=== PATIENT | male | born 1930 | race Caucasian/White ===

== ENCOUNTER 2016-08-13 12:37 | Emergency (ER) | payer OTHER ==
[~2016-08-13 12:37] MED LIST: ALPH-E400 IU PO; ATIVAN0.5 M1 PO; AUGMENTIN 500M500 MG PO; CALCIUM + D 6001 TAB PO; CALCIUM-MAGNES1 EAC3 PO; CHILDREN'S ASPI81 M1 PO; CIALIS5 M1 PO; COZAAR25 M1 PO; FINASTERIDE5 MG PO; FISH OIL 1,0001 EACH PO; GLYBURIDE2.5 M1 PO; GLYBURIDE2.5 MG PO; JANUVIA100 M1 PO; LISINOPRIL2.5 MG PO; LOPRESSOR 25MG25 MG PO; LOPRESSOR50 M1 PO; MASON NATURAL1200 MG PO; METFORMIN HCL500 MG PO; MULTIVITAMIN1 TAB PO; MYRBETRIQ25 M1 PO; OCUVITE1 TA1 PO; OMEPRAZOLE20 M2 PO; OMEPRAZOLE20 MG PO; RANEXA500 M1 PO; SERTRALINE HCL100 MG PO; SERTRALINE HYDR50 MG PO; SIMVASTATIN40 M1 PO; SIMVASTATIN40 MG PO; SLOW-MAG71.5 MG PO; TAMSULOSIN HYD0.4 MG PO; VITAMIN C500 M3 PO; VITAMIN D1000 UNIT PO
[2016-08-13 12:54] VITALS: BP 149/77
--- NOTE | 2016-08-13 13:38 | ED UPPER/LOWER EXTREMITY COMPL ---
History of Present Illness General Chief Complaint: Fall Stated Complaint: PT FELL 2DAYS AGO WIH SHOULDER PAIN Source: patient, family () Exam Limitations: no limitations Vital Signs & Intake/Output Vital Signs & Intake/Output Vital Signs Date Time Temp Pulse Resp B/P Pulse O2 O2 Flow FiO2 Ox Delivery Rate 08/13 1254 98.2 80 20 149/77 95 Allergies Coded Allergies: NO KNOWN ALLERGIES (01/19/16) Reconcile Medications Aspirin (Children's Aspirin) 81 MG TAB.CHEW 1 TAB PO DAILY HEART HEALTH ( Reported) Glyburide 2.5 MG TABLET 1 TAB PO AD DIABETES (Reported) Lorazepam (Ativan) 0.5 MG TABLET 1 TAB PO PRN ANXIETY (Reported) Losartan Potassium (Cozaar) 25 MG TABLET 1 TAB PO DAILY HEART/BP (Reported) Magnesium Chloride (Slow-Mag) 71.5 MG TABLET.DR 1 TAB PO DAILY SUPPLEMENT ( Reported) Meloxicam (Mobic) 15 MG TABLET 1 TAB PO DAILY PRN pain Metoprolol Tartrate (Lopressor) 50 MG TABLET 1 TAB PO BID HEART/BP (Reported) Mirabegron (Myrbetriq) 25 MG TAB.ER.24H 1 TAB PO DAILY BLADDER (Reported) Omeprazole 20 MG CAPSULE.DR 1 CAP PO AD GI (Reported) Ranolazine (Ranexa) 500 MG TAB.ER.12H 1 TAB PO BID HEART (Reported) Sertraline HCl 100 MG TABLET 1 TAB PO DAILY MENTAL HEALTH (Reported) Simvastatin (Simvastatin*) 40 MG TABLET 1 TAB PO QPM High lipid (Reported) Sitagliptin Phosphate (Januvia) 100 MG TABLET 1 TAB PO DAILY DM (Reported) Tadalafil (Cialis) 5 MG TABLET 1 TAB PO AD ED (Reported) Triage Note: PT PRESENTS TO ER C/O OF LEFT SHOULDER PAIN S/P FALL 2 DAYS AGO. PT STATES HE WAS TRYING TO TIE HIS SHOE AND LOST HIS BALANCE AND STRUCK HIS SHOULDER. Triage Nurses Notes Reviewed? yes HPI: This patient is an 86-year-old male who presented to the emergency department today for evaluation of left shoulder and upper arm pain. The patient reported that on Tuesday he was bending over to tie his shoes and fell onto his left side. The patient denied losing consciousness. He denied any pain or dizziness. The patient denied any neck pain. The patient reported that the pain is located primarily in his upper arm and is worse with movement. The pain is a 9 out of 10 and has been worsening since Tuesday. The patient denied any numbness or tingling in his extremity. He denied any elbow or wrist pain. Patient reported that his shoulder, sometimes hurts as well. The patient denied a difficulty breathing, chest pain, headaches, visual changes, or abdominal pain. (MAYCO CARTER PA-C) Past History Travel History Traveled to [place] past 21 day No Medical History Any Pertinent Medical History? see below for history Cardiovascular: HTN, CAD, [place] 1969' Gastrointestinal: GERD Renal: BLADDER STIMULATOR Endocrine: DM TYPE II History of MRSA: No History of VRE: No History of CDIFF: No Surgical History Surgical History: Bladder stimulator Psychosocial History Who do you live with Spouse Services at Home None What is your primary language Swedish Tobacco Use: Never used Family History Family History, If Any: BROTHER FH: coronary artery disease Hx Contributory? No (MAYCO CARTER PA-C) Review of Systems Review of Systems Constitutional: Reports: no symptoms. EENTM: Reports: no symptoms. Respiratory: Reports: no symptoms. Cardiovascular: Reports: no symptoms. Gastrointestinal/Abdominal: Reports: no symptoms. Musculoskeletal: Reports: see HPI. Skin: Reports: no symptoms. Neurological/Psychological: Reports: no symptoms. All Other Systems: Reviewed and Negative (MAYCO CARTER PA-C) Physical Exam Physical Exam General Appearance: well developed/nourished, no apparent distress, alert, awake Comments: Well-developed well-nourished person in no acute distress HEENT: Normal EENT exam, head normocephalic/atraumatic with no bony deformities or step-offs of the skull, no tenderness to palpation over the scalp Pupils equally round and reactive to light. Neck: Supple. Full range of motion. No midline tenderness Back: Normal inspection Cardiovascular: Regular rate and rhythm with no murmurs, rubs, or gallops Left upper extremity: No effusions overlying erythema or ecchymosis to the joint spaces. No bony or muscular deformities noted. Range of motion of the shoulder , limited due to pain. Full range of motion of the elbow and wrist. Tenderness to palpation over the midshaft of the humeral region. No overlying skin breakdown. 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 Radial and brachial pulses 2+ and strong. Capillary refill less than 2 seconds Neuro: Alert oriented x3, cranial nerves II through XII grossly intact. Skin: No appreciable rash on exposed skin, skin is warm and dry. Psych: Mood and affect is normal (RAUL STRAUSS,MAYCO) Progress Differential Diagnosis: arterial insufficiency, cellulitis, compartment syndrome , contusion, dislocation, DVT, fracture, gout, septic arthritis, sprain, tendon injury Plan of Care: Orders Procedure Date/time Status Durable Medical Equipment 08/13 1404 Active Diagnostic Imaging: Viewed by Me: Radiology Read. Discussed w/RAD: Radiology Read. Radiology Impression: PATIENT: BASILIO SHAW SR PRESENT AGE: 86 PATIENT ACCOUNT NO: [id number] : 30 LOCATION: [facility] ORDERING PHYSICIAN: MAYCO CARTER PA-C SERVICE DATE: 08/13/16 EXAM TYPE: RAD - XRY-HUMERUS, LEFT; XRY-SHOULDER COMPLETE-LEFT EXAMINATION: XR SHOULDER, LEFT XR HUMERUS, LEFT CLINICAL INFORMATION: Fall and pain. Assess for fracture or dislocation. COMPARISON: Chest x-ray 01/21/2016. TECHNIQUE: Left shoulder: 4 views were obtained. Left humerus AP and lateral views were obtained. FINDINGS: Left shoulder: There is normal alignment of the glenohumeral joint. There is mild irregularity at the acromioclavicular joint. No fractures are demonstrated. There is calcification of the rotator cuff, consistent with calcific tendinitis. There is an area of density projected over the humeral head consistent with a bone island, seen on prior imaging. The lung diego are well aerated without evidence of pneumothorax. There are surgical clips in the left superior chest and there are median sternotomy wires at multiple levels; these postoperative changes are new compared to the prior study. Left humerus: Alignment of the shoulder and elbow joints is normal. No fractures are demonstrated. Bone density is normal. There is a small dense foreign body in the soft tissues along the mid upper arm. IMPRESSION: 1. There are no fractures or subluxations. 2. 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 DICTATED BY: SANDY REYES MD DATE/TIME DICTATED :08/13/161330 PRICER:COLLETTE DATE/TIME TRANSCRIBED:08/13/161330 CONFIDENTIAL, DO NOT COPY WITHOUT APPROPRIATE AUTHORIZATION. < Electronically signed in Other Vendor System> SIGNED BY: SANDY REYES MD [id number] Comments: 08/13/2016 2:04:50 PM: I updated the patient on the results of his imaging. No dislocations or fractures. Likely contusion versus sprain. The patient did report that he may have hit the side of his head on the ground. Discussed with this patient the option for a CT scan of the head to rule out any bleeds or acute injuries. The patient and his family refused at this time. Stable for discharge home. (RAUL STRAUSS,MAYCO) Departure Departure Disposition: HOME OR SELF CARE Condition: Stable Clinical Impression Primary Impression: Arm sprain Referrals: AURORA MELÉNDEZ MD (PCP/Family) Additional Instructions: Use the sling provided to you here in the emergency Department for extra support of your arm. Take medication for pain as prescribed. Rest your arm. Gentle stretching. You may apply ice to the affected area for 15-20 minutes, 3-4 times a day over the next 24-48 hours. Return to the emergency department for any worsening symptoms or concerns. Departure Forms: Customer Survey General Discharge Information Prescriptions: Current Visit Scripts Meloxicam (Mobic) 1 TAB PO DAILY PRN pain #10 TAB (MAYCO CARTER PA-C) PA/ASPHALT PAVING SUPERINTENDENT Co-Sign Statement Statement: ED Attending supervision documentation- [X] I saw and evaluated the patient. I have also reviewed all the pertinent lab results and diagnostic results. I agree with the findings and the plan of care as documented in the PA's/ASPHALT PAVING SUPERINTENDENT's documentation. [X] I have reviewed the ED Record and agree with the PA's/ASPHALT PAVING SUPERINTENDENT's documentation. [] Additions or exceptions (if any) to the PAs/ASPHALT PAVING SUPERINTENDENT's note and plan are summarized below: [] (JADEN BAINS,TANA)
--- NOTE | 2016-08-13 13:46 | RADIOLOGY REPORT ---
EXAMINATION: XR SHOULDER, LEFT XR HUMERUS, LEFT CLINICAL INFORMATION: Fall and pain. Assess for fracture or dislocation. COMPARISON: Chest x-ray 01/21/2016. TECHNIQUE: Left shoulder: 4 views were obtained. Left humerus AP and lateral views were obtained. FINDINGS: Left shoulder: There is normal alignment of the glenohumeral joint. There is mild irregularity at the acromioclavicular joint. No fractures are demonstrated. There is calcification of the rotator cuff, consistent with calcific tendinitis. There is an area of density projected over the humeral head consistent with a bone island, seen on prior imaging. The lung diego are well aerated without evidence of pneumothorax. There are surgical clips in the left superior chest and there are median sternotomy wires at multiple levels; these postoperative changes are new compared to the prior study. Left humerus: Alignment of the shoulder and elbow joints is normal. No fractures are demonstrated. Bone density is normal. There is a small dense foreign body in the soft tissues along the mid upper arm. IMPRESSION: 1. There are no fractures or subluxations. 2. 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
[2016-08-13] MEDS ORDERED: MOBIC15 M1 PO (14:06)
== END 2016-08-13 14:18 ==
LOC: ERH 12:37
DX: S43.402A Unspecified sprain of left shoulder joint, initial encounter (principal); W19.XXXA Unspecified fall, initial encounter
CPT/HCPCS: 73030-LT; 73060-LT

== ENCOUNTER → 2016-09-16 | Day surgery (SDC) | payer OTHER ==
[~2016-09-16] VITALS: Ht 170.2 cm; Wt 74.8 kg
[~2016-09-16] MED LIST changes: +MOBIC15 M1 PO; +MULTI-DAY VITA1 EACH PO; +MYRBETRIQ50 M1 PO; +VITAMIN C500 M8 PO; +VITAMIN D400 UNIT PO; +VITAMIN E1000 UNI1 PO
[2016-09-16 07:08] LABS: ABSOLUTE BASOPHIL COUNT 0 /CUMM (0.0-0.2); ABSOLUTE EOSINOPHIL COUNT 0.4 /CUMM (0.0-0.7); ABSOLUTE GRANULOCYTE CT 7.3 /CUMM (1.4-6.5); ABSOLUTE LYMPH COUNT 1.6 /CUMM (1.2-3.4); BASOPHIL % 0.3 % (0.0-2.0); EOSINOPHIL % 3.5 % (0-5); GRANULOCYTE % 71.1 % (42.2-75.2); MEAN CORPUSCULAR HGB 30.3 PG (27.0-31.0); MEAN CORPUSCULAR HGB CONC 33.2 G/DL (33.0-37.0); MEAN CORPUSCULAR VOLUME 91.2 FL (80.0-94.0); MEAN PLATELET VOLUME 7.4 FL (7.4-10.4); PLATELET COUNT 187 /CUMM (130-400); RBC DISTRIBUTION WIDTH 13.5 % (11.5-14.5); RED BLOOD CELL CT 4.49 /CUMM (4.70-6.10); WHITE BLOOD CELL COUNT 10.2 /CUMM (4.8-10.8)
--- NOTE | 2016-09-16 12:06 | Operative Report ---
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 Timeout was performed in order to confirm the correct patient, procedure, and other pertienent operative information. After adequate anesthesia and antibiotics, the patient was then placed lithotomy stirrups, draped and prepped in the usual surgical fashion. The 22 qatari cystoscope with the 30 degree angle lens was inserted into the bladder without difficulty. Uretral mucosa was noted to be coapting well. The bladder appears normal without tumor/stone. Bilateral clear efflux was also noted. The cystoscope was removed after draining the bladder. Subsequently, the Botox Injection Resectoscope with 30 angle lens was inserted without difficulty. Under direct visualization, the 18-gauge cystoscopic needle was extended. Using a spiral injection patern, avoiding the trigone and area around the ureteral orifices, a total of 300 units of Botox, in small 10unit aliquots was injected into the bladder muscle/detrusor (including the dome, posterior, right and left prasad of the bladder) forming a submucosal blister with each injection of botox. The bladder was then drained and the Botox cystoscope was removed without difficulty. The patient tolerated the procedure well, and was then taken to recovery room in satisfactory condition. She was discharged home with pain medication and antibiotics, and to follow up in 2 weeks' time. Discharge Disposition: Same Day Admissions CC: GAMA SHELDON MD
== END ==
LOC: STS 01:53
PROVIDERS: Urology
DX: N32.81 Overactive bladder (principal); I25.10 Atherosclerotic heart disease of native coronary artery without angina pectoris; I25.2 Old myocardial infarction; I10 Essential (primary) hypertension; E11.9 Type 2 diabetes mellitus without complications; Z79.84 Long term (current) use of oral hypoglycemic drugs
CPT/HCPCS: 36415; J0585

== ENCOUNTER 2016-10-26 12:53 | Emergency (ER) | payer OTHER ==
[~2016-10-26 12:53] MED LIST changes: -MULTI-DAY VITA1 EACH PO; -MYRBETRIQ50 M1 PO; -VITAMIN C500 M8 PO; -VITAMIN D400 UNIT PO; -VITAMIN E1000 UNI1 PO
[2016-10-26] MEDS ORDERED: RANEXA500 M1 PO (14:19)
[2016-10-26] MEDS ORDERED: MYRBETRIQ50 M1 PO (14:20)
[2016-10-26] MEDS ORDERED: VITAMIN D400 UNIT PO (14:21)
[2016-10-26] MEDS ORDERED: MULTI-DAY VITA1 EACH PO (14:21)
[2016-10-26] MEDS ORDERED: VITAMIN C500 M8 PO (14:21)
[2016-10-26] MEDS ORDERED: CALCIUM-MAGNES1 EAC3 PO (14:22)
[2016-10-26] MEDS ORDERED: VITAMIN E1000 UNI1 PO (14:22)
--- NOTE | 2016-10-26 16:42 | ED GI/GU/ABDOMINAL COMPLAINT ---
History of Present Illness General Chief Complaint: Male Genitourinary Problems Stated Complaint: DIFF URINATING, PAIN IN BLADDER,SENT BY UROLOGY Source: patient, family, old records Exam Limitations: no limitations Vital Signs & Intake/Output Vital Signs & Intake/Output Vital Signs Date Time Temp Pulse Resp B/P Pulse O2 O2 Flow FiO2 Ox Delivery Rate 10/26 1524 98.0 66 20 137/67 95 Room Air 10/26 1428 96 10/26 1258 97.5 71 18 146/82 96 Room Air Allergies Coded Allergies: NO KNOWN ALLERGIES (01/19/16) Reconcile Medications Ascorbic Acid (Vitamin C) 500 MG TABLET 1 TAB PO DAILY SUPPLEMENT (Reported) Aspirin (Children's Aspirin) 81 MG TAB.CHEW 1 TAB PO DAILY HEART/BLOOD ( Reported) Calcium Carb/Mag Oxide/Zinc Ox (Ufrihiy-Aoqbpsows-Wdlt Caplet) 334 MG-134 MG-5 MG TABLET 1 CAP PO DAILY SUPPLEMENT (Reported) Ergocalciferol (Vitamin D2) (Vitamin D) 400 UNIT TABLET 1 TAB PO DAILY SUPPLEMENT (Reported) Glyburide 2.5 MG TABLET 1 TAB PO BID DIABETES (Reported) Lorazepam (Ativan) 0.5 MG TABLET 1 TAB PO QPM ANXIETY/SLEEP (Reported) Losartan Potassium (Cozaar) 25 MG TABLET 1 TAB PO QAM HEART/BP (Reported) Metoprolol Tartrate (Lopressor) 50 MG TABLET 1 TAB PO BID HEART/BP (Reported) Mirabegron (Myrbetriq) 50 MG TAB.ER.24H 1 TAB PO QPM BLADDER (Reported) Multivitamin (Multi-Day Vitamins) 1 EACH TABLET 1 TAB PO QAM SUPPLEMENT ( Reported) Omeprazole 20 MG CAPSULE.DR 1 CAP PO BID GI (Reported) Ranolazine (Ranexa) 500 MG TAB.ER.12H 1 TAB PO BID HEART (Reported) Sertraline HCl 100 MG TABLET 1 TAB PO QAM MENTAL HEALTH (Reported) Simvastatin (Simvastatin*) 40 MG TABLET 1 TAB PO QPM High lipid (Reported) Sitagliptin Phosphate (Januvia) 100 MG TABLET 1 TAB PO QAM DM (Reported) Vitamin E Mixed (Vitamin E) 1,000 UNIT CAPSULE 1 CAP PO DAILY SUPPLEMENT ( Reported) Triage Note: TRIAGE; PT STATES HE HAD A BOTOX TREATMENT TO HELP HIM URINATE. STATES OVER THE PAST WEEK HAS BEEN HAVING PAIN AND DIFFICULTY URINATING. PT STATES HE CANT GET OUT OF BED AT TIMES. STATES THAT DR SHELDON TOLD HIM TO COME TO ER TODAY. Triage Nurses Notes Reviewed? yes Onset: Last week Duration: day(s):, continues in ED, intermittent Timing: recent history Quality/Severity: aching, fullness, mild, moderate Location: suprapubic Radiation: no radiation Activities at Onset: physical activity Prior Abdominal Problems: none Past Sexual History: Unobtainable at this time Modifying Factors: Worsens With: movement, palpation. Associated Symptoms: dysuria HPI: 4-5 days prior to admission patient complains of bilateral inguinal pain described as mild to moderate worse with extending legs to try to ambulate occurring intermittently especially at night associated with difficulty voiding. He denies fever chills nausea vomiting diarrhea chest pain cough shortness breath headache dysuria rash bleeding. Past History Travel History Traveled to [place] past 21 day No Medical History Any Pertinent Medical History? see below for history Cardiovascular: HTN, CAD, [place] 1970'S Gastrointestinal: GERD Renal: BLADDER STIMULATOR URINARY RETENTION Endocrine: DM TYPE II History of MRSA: No History of VRE: No History of CDIFF: No Surgical History Surgical History: Bladder stimulator Psychosocial History Who do you live with Spouse Services at Home None What is your primary language Yi Tobacco Use: Never used ETOH Use: denies use Illicit Drug Use: denies illicit drug use Family History Family History, If Any: BROTHER FH: coronary artery disease Hx Contributory? No Review of Systems Review of Systems Constitutional: Reports: no symptoms. EENTM: Reports: no symptoms. Respiratory: Reports: no symptoms. Cardiovascular: Reports: no symptoms. GI: Reports: no symptoms. Genitourinary: Reports: see HPI, hesitation, pain. Musculoskeletal: Reports: no symptoms. Skin: Reports: no symptoms. Neurological/Psychological: Reports: no symptoms. Hematologic/Endocrine: Reports: no symptoms. Immunologic/Allergic: Reports: no symptoms. All Other Systems: Reviewed and Negative Physical Exam Physical Exam General Appearance: well developed/nourished, alert, awake, anxious, mild distress Head: atraumatic, normal appearance Eyes: Bilateral: normal appearance, PERRL, EOMI, normal inspection. Ears, Nose, Throat, Mouth: hearing grossly normal, moist mucous membrane Neck: normal inspection, supple, full range of motion, normal alignment Respiratory: normal breath sounds, chest non-tender, no respiratory distress, quiet respiration, lungs clear Cardiovascular: regular rate/rhythm, normal peripheral pulses, norml femoral pulses equa Peripheral Pulses: 4+ carotid (R), 4+ carotid (L) Gastrointestinal: normal bowel sounds, soft, non-tender, no organomegaly Male Genitals: normal genitalia Back: normal inspection, normal range of motion Extremities: normal range of motion, no ligament instability Neurologic/Psych: no motor/sensory deficits, awake, alert, oriented x 3, normal gait, normal mood/affect, 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 No Severe Sepsis Present: No Septic Shock Present: No Progress Differential Diagnosis: urinary retention, UTI/pyelo Plan of Care: Orders Procedure Date/time Status URINALYSIS 10/26 1259 Complete Laboratory Tests 10/26/16 1545: Urine Color YEL, Urine Clarity CLEAR, Urine pH 6.5, Ur Specific [place] 1.010, Urine Protein NEG, Urine Ketones NEG, Urine Nitrite NEG, Urine Bilirubin NEG, Urine Urobilinogen 0.2, Ur Leukocyte Esterase TRACE H, Ur Microscopic SEDIMENT EXAMINED, Urine RBC RARE, Urine WBC 1-3 H, Ur Epithelial Cells RARE, Urine Hemoglobin NEG, Urine Glucose NEG Initial ED EKG: none Departure Departure Time of Disposition: 1640 Disposition: HOME OR SELF CARE Condition: Stable Clinical Impression Primary Impression: Acute urinary retention Referrals: AURORA MELÉNDEZ MD (PCP/Family) GAMA SHELDON MD Call for urology follow up Departure Forms: Customer Survey General Discharge Information
[2016-10-26 17:14] VITALS: BP 134/70
== END 2016-10-26 17:15 ==
LOC: ERH 12:53
DX: R33.9 Retention of urine, unspecified (principal)
CPT/HCPCS: 81001

== ENCOUNTER 2017-08-18 12:20 | Inpatient (IN) | payer OTHER ==
[~2017-08-18] VITALS: Ht 170.2 cm; Wt 75.8 kg
[~2017-08-18 12:20] MED LIST changes: +MULTI-DAY PLUS1 EAC1 PO; +MYRBETRIQ50 M1 PO; +VITAMIN C500 M8 PO; +VITAMIN D400 UNIT PO; +VITAMIN E1000 UNI1 PO
--- NOTE | 2017-08-18 12:43 | ED GENERAL ADULT ---
History of Present Illness General Chief Complaint: Fever Stated Complaint: BIBA FEVER Source: patient, family Exam Limitations: patient's age, poor historian Vital Signs & Intake/Output Vital Signs & Intake/Output Vital Signs Date Time Temp Pulse Resp B/P B/P Pulse O2 O2 Flow FiO2 Mean Ox Delivery Rate 08/18 2106 98.9 75 20 140/70 95 Room Air 08/18 2044 Room Air 08/18 2000 98.6 84 18 167/76 94 Room Air 08/18 1826 97.3 86 22 163/77 97 Room Air 08/18 1610 98.7 78 20 131/64 94 Room Air 08/18 1234 101.0 84 18 117/68 94 Room Air Allergies Coded Allergies: NO KNOWN ALLERGIES (01/19/16) Reconcile Medications Ascorbic Acid (Vitamin C) 500 MG TABLET 1 TAB PO QAM SUPPLEMENT (Reported) Aspirin (Children's Aspirin) 81 MG TAB.CHEW 1 TAB PO QAM HEART/BLOOD ( Reported) Calcium Carb/Mag Oxide/Zinc Ox (Igjnpny-Bobuujvxi-Kgut Caplet) 334 MG-134 MG-5 MG TABLET 1 CAP PO QAM SUPPLEMENT (Reported) Cholecalciferol (Vitamin D3) (Vitamin D) 400 UNIT TABLET 1 TAB PO QAM SUPPLEMENT (Reported) Glyburide 2.5 MG TABLET 1 TAB PO BID DIABETES (Reported) Lorazepam (Ativan) 0.5 MG TABLET 1 TAB PO QAM ANXIETY/SLEEP (Reported) Losartan Potassium (Cozaar) 25 MG TABLET 1 TAB PO QAM HEART/BP (Reported) Metoprolol Tartrate (Lopressor) 50 MG TABLET 1 TAB PO BID HEART/BP (Reported) Multivitamin-Min/Iron/FA/Vit K (Multi-Day Plus Minerals Tablet) 18 MG IRON-400 MCG-25 MCG TABLET 1 TAB PO QAM SUPPLEMENT (Reported) Omeprazole 20 MG CAPSULE.DR 1 CAP PO BID GI (Reported) Sertraline HCl 100 MG TABLET 1 TAB PO QAM MENTAL HEALTH (Reported) Simvastatin (Simvastatin*) 40 MG TABLET 1 TAB PO QPM High lipid (Reported) Sitagliptin Phosphate (Januvia) 100 MG TABLET 1 TAB PO QAM DM (Reported) Vit C/Vit E/Lutein/Min/[place]-3 (Ocuvite Softgel) 150 MG-30 UNIT-5 MG-150 MG CAPSULE 1 CAP PO QAM SUPPLEMENT (Reported) Vitamin E Mixed (Vitamin E) 1,000 UNIT CAPSULE 1 CAP PO QAM SUPPLEMENT ( Reported) Triage Nurses Notes Reviewed? 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 He presents to the emergency department for having profound weakness and unable to get up today. He's also had shaking chills. He denies any pain. The onset of the symptoms was abrupt, the duration was just today, the severity is significant; as his symptoms required him to come to the emergency department for care. Past History Travel History Traveled to [facility] past 21 day No Medical History Any Pertinent Medical History? see below for history Neurological: NONE EENT: NONE Cardiovascular: HTN, CAD, [place] 1969'S OPEN HEART SURGERY Respiratory: NONE Gastrointestinal: GERD Hepatic: NONE Renal: BLADDER STIMULATOR URINARY RETENTION Musculoskeletal: NONE Psychiatric: NONE Endocrine: DM TYPE II History of MRSA: No History of VRE: No History of CDIFF: No Surgical History Surgical History: Bladder stimulator Psychosocial History Who do you live with Spouse Services at Home None What is your primary language French Tobacco Use: Cognitive Impairment Family History Family History, If Any: BROTHER FH: coronary artery disease Hx Contributory? No Review of Systems Review of Systems Constitutional: Reports: chills, fever, malaise, weakness. EENTM: Denies: visual changes. Respiratory: Denies: short of breath. Cardiovascular: Denies: chest pain. GI: Denies: abdominal pain. Genitourinary: Reports: no symptoms. Musculoskeletal: Reports: no symptoms. Skin: Denies: rash. Neurological/Psychological: Reports: no symptoms. Hematologic/Endocrine: Reports: no symptoms. Physical Exam Physical Exam General Appearance: alert, awake, anxious, moderate distress Head: atraumatic, normal appearance Eyes: Bilateral: normal appearance, PERRL, EOMI. Ears, Nose, Throat: normal pharynx, normal ENT inspection Neck: normal inspection, supple Respiratory: normal breath sounds, chest non-tender, no respiratory distress Cardiovascular: regular rate/rhythm Peripheral Pulses: 4+ radial (R), 4+ radial (L) Gastrointestinal: soft, non-tender Back: normal range of motion Extremities: normal inspection Neurologic/Psych: no motor/sensory deficits, awake, alert, oriented x 3 Skin: intact, normal color, warm/dry Core Measures ACS in differential dx? No CVA/TIA Diagnosis: No NIH Stroke Scale (24 Hours) NIH Stroke Scale (24 Hours) Response Value Level of Consciousness alert 0 LOC Questions answers both correctly 0 LOC Commands obeys both correctly 0 Best Gaze normal 0 Visual Estrella no visual loss 0 Facial Paresis normal 0 Motor Arm - Left no drift 0 Motor Arm - Right no drift 0 Motor Leg - Left no drift 0 Motor Leg - Right no drift 0 Limb Ataxia no ataxia 0 Sensory normal 0 Best Language no aphasia 0 Dysarthria normal articulation 0 Total 0 Date Last Known Well: 08/17/17 Symptom start date: 08/18/17 Reason tPA not ordered Medical Contraindication Swallow Evaluation Pass Sepsis Present: Yes Sepsis Focused Exam Completed? No Progress Differential Diagnoses I considered the following diagnoses in my evaluation of the patient: [Sepsis, dehydration, CVA, acute coronary syndrome, sepsis, pneumonia, UTI, influenza] Plan of Care: Orders Procedure Date/time Status Consistent Carbohydrate 3 08/19 B Active CBC WITHOUT DIFFERENTIAL 08/19 06 Active BASIC ELECTROLYTES PLUS BUN&CR 08/19 0600 Active Heart Healthy Diet 08/18 D Complete LACTIC ACID 08/18 2151 Active Vital Signs 08/18 2042 Active Teach/Educate 08/18 2042 Active Pain Treatment and Response 08/18 2042 Active Nutritional Intake, Monitor 08/18 2042 Active Isolation 08/18 2042 Active Intake & Output 08/18 2042 Active Patient Care Conference 08/18 2042 Active Activity/Ambulation 08/18 2042 Active NIH Stroke Scale 08/18 1917 Active Add-on Test (ER Only) 08/18 1854 Active MRI-HEAD W/O CAREY 08/18 1853 Active LACTIC ACID 08/18 1851 Complete Patient Data 08/18 1840 Active MRI-HEAD W/O CAREY 08/18 1823 Active PT Evaluate & Treat 08/18 1656 Active Saline Lock 08/18 1656 Active Pathway - chart 08/18 1656 Active House Staff 08/18 1656 Active Code Status 08/18 1656 Active Patient Data 08/18 1604 Active ED Holding Orders 08/18 1550 Active Admit to inpatient 08/18 1550 Active Vital Signs 08/18 1550 Active Code Status 08/18 1550 Complete Add-on Test (ER Only) 08/18 1315 Active Add-on Test (ER Only) 08/18 1314 Active RAPID VIRAL INFLUENZA A 08/18 1314 Complete BLOOD CULTURE 08/18 1314 Active EKG 08/18 1314 Active THYROID STIMULATING HORMONE 08/18 1255 Complete TROPONIN LEVEL 08/18 1255 Complete LACTIC ACID 08/18 1255 Complete FREE T4 08/18 1255 Complete COMPREHENSIVE METABOLIC PANEL 08/18 1253 Complete CBC WITHOUT DIFFERENTIAL 08/18 1253 Complete Intake & Output 08/18 1236 Active CULTURE,URINE 08/18 1236 Active URINALYSIS 08/18 1236 Complete US-RENAL/KIDNEY 08/18 UNK Active SWALLOW EVALUATION 08/18 UNK Active VTE Mechanical Prophylaxis 08/18 UNK Active Vital Signs 08/18 UNK Complete Precautions 08/18 UNK Active Intake & Output 08/18 UNK Complete FingerStick- Glucose 08/18 UNK Active Current Medications Sig/Bren Start time Last Medication Dose Stop Time Status Admin Ceftriaxone Sodium 1,000 MG DAILY 08/19 1000 AC (Rocephin) Enoxaparin Sodium 40 MG DAILY 08/19 1000 AC (Lovenox) Sertraline HCl 100 MG QAM 08/19 1000 AC (Zoloft) Metoprolol Tartrate 50 MG BID 08/18 2200 AC (Lopressor) Omeprazole 20 MG BID 08/18 2200 AC (Prilosec) Sodium Chloride 1,000 ML Q13H 08/18 2014 AC (Half Normal Saline) 08/19 0914 Losartan Potassium 25 MG QAM 08/18 2000 AC (Cozaar) Atorvastatin Calcium 80 MG 1700 08/18 1900 AC (Lipitor) Aspirin 81 MG QAM 08/18 1842 AC 08/18 (Aspirin) 2037 Acetaminophen 650 MG Q6P PRN 08/18 1700 AC (Tylenol) Ibuprofen 400 MG Q6P PRN 08/18 1700 AC (Motrin) Insulin Aspart 0 TIDAC 08/18 1700 AC 08/18 (NovoLOG) 1809 Oxycodone/ 1 TAB Q8P PRN 08/18 1700 AC Acetaminophen (Percocet) Laboratory Tests 08/18/17 1912: Lactic Acid 2.7 H 08/18/17 1255: Anion Gap 17 H, Estimated GFR > 60, BUN/Creatinine Ratio 17.5, Glucose 244 H, Lactic Acid 3.9 H, Calcium 9.2, Total Bilirubin 0.8, AST 30, ALT 31, Alkaline Phosphatase 81, Troponin I 0.03, Total Protein 7.6, Albumin 4.4, Globulin 3.2, Albumin/Globulin Ratio 1.4, TSH 0.920, Free T4 0.92, CBC w Diff MAN DIFF ORDERED , RBC 4.46 L, MCV 87.6, MCH 29.2, MCHC 33.3, RDW 14.7 H, MPV 7.7, Gran % 88.2 H, Lymphocytes % 3.2 L, Monocytes % 8.3, Eosinophils % 0.2, Basophils % 0.1, Absolute Granulocytes 16.5 H, Segmented Neutrophils 83 H, Band Neutrophils 8 H, Absolute Lymphocytes 0.6 L, Lymphocytes 2 L, Monocytes 7, Absolute Monocytes 1.6 H, Absolute Eosinophils 0, Absolute Basophils 0, Platelet Estimate ADEQUATE, Normocytic RBCs VERIFIED, Normochromic RBCs VERIFIED 08/18/17 1238: Urinalysis LIGHT H, Urine Color YEL, Urine Clarity CLEAR, Urine pH 6.0, Ur Specific [place] 1.025, Urine Protein 30 H, Urine Ketones NEG, Urine Nitrite NEG, Urine Bilirubin NEG, Urine Urobilinogen 0.2, Ur Leukocyte Esterase NEG, Ur Microscopic SEDIMENT EXAMINED, Urine RBC 1-3, Urine WBC 5-10 H, Urine Bacteria MOD H, Urine Mucus FEW, Urine Hemoglobin NEG, Urine Glucose 250 H Microbiology 08/18 1550 BLOOD: Blood Culture - RECD 08/18 1522 BLOOD: Blood Culture - RECD 08/18 1415 NASOPHARYN: Influenza Virus A & B Rapid Smear - COMP 08/18 1238 URINE ROUT: Urine Culture - RECD CXR Impression: no infiltrates Initial ED EKG: NORMAL SINUS RHYTHM, NO SIGNIFICANT ST WAVE CHANGES Prior EKG: unchanged Comments: The patient has fever, leukocytosis and pyuria he also has an elevated lactic acid level. I am concerned for urosepsis. He was treated with IV Rocephin and IV fluids. Head CT results are shown below IMPRESSION: 1. There are no acute bleeds or territorial infarcts. However, there is extensive low attenuation in the periventricular and subcortical white matter, and a small area of more acute ischemia cannot be excluded on the basis of this study. 2. 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 DICTATED BY: Keny Rodriguez MD DATE/TIME DICTATED:01/25/18 / 1431 PHYSICAL OPTICS TEACHER:COLLETTE DATE/TIME TRANSCRIBED:08/18/171430 CONFIDENTIAL, DO NOT COPY WITHOUT APPROPRIATE AUTHORIZATION. <Electronically signed in Other Vendor System> SIGNED BY: Keny Rodriguez MD 08/18/171437 Recent infarct cannot entirely be excluded and so he is being admitted to telemetry for further monitoring. MRI will be obtained. Departure Departure Disposition: STILL A PATIENT Condition: Stable Clinical Impression Primary Impression: Weakness Secondary Impressions: Sepsis, UTI (urinary tract infection) Referrals: Taurus Barraza MD (PCP/Family) Departure Forms: Customer Survey General Discharge Information Admission Note Spoke With: Randall BAINS,Roz Documentation of Exam: Documentation of any treatments & extenuating circumstances including Concerns Regarding Discharge (functional status, medication knowledge or non-compliance, living conditions, etc.) that warrant an admission rather than observation: [The patient needs admission for IV fluids, IV antibiotics, repeat lactic acid, reevaluation] Critical Care Note Critical Care Note Critical Care Time: 30-74 min ED Attending Observation Initial Observation Note: I
[2017-08-18 13:07] LABS: ABSOLUTE BASOPHIL COUNT 0 /CUMM (0.0-0.2); ABSOLUTE EOSINOPHIL COUNT 0 /CUMM (0.0-0.7); ABSOLUTE GRANULOCYTE CT 16.5 /CUMM (1.4-6.5); ABSOLUTE LYMPH COUNT 0.6 /CUMM (1.2-3.4); ABSOLUTE MONOCYTE COUNT 1.6 /CUMM (0.10-0.60); BASOPHIL % 0.1 % (0.0-2.0); EOSINOPHIL % 0.2 % (0-5); GRANULOCYTE % 88.2 % (42.2-75.2); HEMATOCRIT 39.1 % (42-52); MEAN CORPUSCULAR HGB 29.2 PG (27.0-31.0); MEAN CORPUSCULAR HGB CONC 33.3 G/DL (33.0-37.0); MEAN CORPUSCULAR VOLUME 87.6 FL (80.0-94.0); MEAN PLATELET VOLUME 7.7 FL (7.4-10.4); PLATELET COUNT 205 /CUMM (130-400); RBC DISTRIBUTION WIDTH 14.7 % (11.5-14.5); RED BLOOD CELL CT 4.46 /CUMM (4.70-6.10); WHITE BLOOD CELL COUNT 18.7 /CUMM (4.8-10.8)
--- NOTE | 2017-08-18 13:51 | RADIOLOGY REPORT ---
EXAMINATION: XR PORTABLE CHEST CLINICAL INFORMATION: Fever. Evaluate for pneumonia. COMPARISON: 01/21/2016 TECHNIQUE: Portable frontal view of the chest was obtained. FINDINGS: Lungs are hypoinflated. No consolidation is identified. There is no overt pneumonia. No pulmonary edema or pleural effusion. Mild subsegmental atelectasis is suspected in the right perihilar region. Cardiac silhouette is normal in size in this patient who is status post cardiac surgery. The sternotomy wires are intact. Atherosclerotic calcification of the aorta. 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 IMPRESSION: No evidence of pneumonia.
--- NOTE | 2017-08-18 14:38 | CT SCAN REPORT ---
EXAMINATION: CT HEAD WITHOUT CONTRAST CLINICAL INFORMATION: Weakness. Assess for CVA. COMPARISON: None. TECHNIQUE: Contiguous axial imaging was performed from the skull base to vertex without intravenous administration of contrast. DLP: 616.48 mGy-cm FINDINGS: There is no evidence of acute intracranial hemorrhage or territorial infarction. No abnormal mass effect or midline shift is seen. Biggs to white matter differentiation is well preserved. No extra-axial fluid collections are identified. There is commensurate prominence of the ventricles and sulci consistent with moderate diffuse volume loss, which is age-appropriate. There is extensive low attenuation in the periventricular and subcortical white matter, consistent with severe chronic microvascular ischemic disease. There is a lacunar infarct in the left caudate head. There are atheromatous calcifications of the cavernous internal carotid arteries bilaterally. There has been bilateral lens extractions. There are no acute osseous findings. There are surgical wires at the left zygomaticofrontal suture region. The soft tissues are unremarkable. The mastoid air cells and visualized portions of the paranasal sinuses are well aerated. IMPRESSION: 1. There are no acute bleeds or territorial infarcts. However, there is extensive low attenuation in the periventricular and subcortical white matter, and a small area of more acute ischemia cannot be excluded on the basis of this study. 2. 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
--- NOTE | 2017-08-18 16:15 | History & Physical ---
Frannie BAINS,Kendra 08/18/17 8065: General Information and HPI MD Statement: I have seen and personally examined SHAWBASILIO PAEZ SR and documented this H&P. The patient is a 87 year old M who presented with a patient stated chief complaint of [weakness]. Source of Information: patient, family, old records Exam Limitations: poor historian History of Present Illness: 87 years old male with past medical history of hypertension, diabetes, hyperlipidemia CAD, CA S/P, infrarenal aortic aneurysm S A/P repair of the aneurysm and 01/07, completed tests with leaking, patient follow-up with his surgeon with ultrasound every 3 months. Was BIBA to [facility] ED with complaints of weakness which started this morning, patient was noticed to be very week attend usual by his and he was not able to get out of bed, he was also noticed to have increased urination which caused him to wet his diaper and his cloth completely and she is unusual for him. Patient also reports pain in his right side of his back, Of note the patient has history of cystoscopy with bottox injection regularly, last time he had injection on 06/09/17, he follow up with Dr. Disla Patient quit smoking 15 years ago, is to smoke 1 cigarette daily for 15 years, no alcohol use, no recreational drug use Condition denies any recent sick contacts or recent travel, he reports being compliant with his home meds, denies any changes in his medications recently. Allergies/Medications Allergies: Coded Allergies: NO KNOWN ALLERGIES (01/19/16) Home Med list Ascorbic Acid (Vitamin C) 500 MG TABLET 1 TAB PO QAM SUPPLEMENT (Reported) Aspirin (Children's Aspirin) 81 MG TAB.CHEW 1 TAB PO QAM HEART/BLOOD ( Reported) Calcium Carb/Mag Oxide/Zinc Ox (Hszgkig-Uwxjwwrih-Maij Caplet) 334 MG-134 MG-5 MG TABLET 1 CAP PO QAM SUPPLEMENT (Reported) Cholecalciferol (Vitamin D3) (Vitamin D) 400 UNIT TABLET 1 TAB PO QAM SUPPLEMENT (Reported) Glyburide 2.5 MG TABLET 1 TAB PO BID DIABETES (Reported) Lorazepam (Ativan) 0.5 MG TABLET 1 TAB PO QAM ANXIETY/SLEEP (Reported) Losartan Potassium (Cozaar) 25 MG TABLET 1 TAB PO QAM HEART/BP (Reported) Metoprolol Tartrate (Lopressor) 50 MG TABLET 1 TAB PO BID HEART/BP (Reported) Multivitamin-Min/Iron/FA/Vit K (Multi-Day Plus Minerals Tablet) 18 MG IRON-400 MCG-25 MCG TABLET 1 TAB PO QAM SUPPLEMENT (Reported) Omeprazole 20 MG CAPSULE. 1 CAP PO BID GI (Reported) Sertraline HCl 100 MG TABLET 1 TAB PO QAM MENTAL HEALTH (Reported) Simvastatin (Simvastatin*) 40 MG TABLET 1 TAB PO QPM High lipid (Reported) Sitagliptin Phosphate (Januvia) 100 MG TABLET 1 TAB PO QAM DM (Reported) Vit C/Vit E/Lutein/Min/[place]-3 (Ocuvite Softgel) 150 MG-30 UNIT-5 MG-150 MG CAPSULE 1 CAP PO QAM SUPPLEMENT (Reported) Vitamin E Mixed (Vitamin E) 1,000 UNIT CAPSULE 1 CAP PO QAM SUPPLEMENT ( Reported) Past History Travel History Traveled to [place] past 21 day No Medical History Neurological: NONE EENT: NONE Cardiovascular: HTN, CAD, CA 1969'S OPEN HEART SURGERY Respiratory: NONE Gastrointestinal: GERD Hepatic: NONE Renal: BLADDER STIMULATOR URINARY RETENTION Musculoskeletal: NONE Psychiatric: NONE Endocrine: DM TYPE II History of MRSA: No History of VRE: No History of CDIFF: No Surgical History Surgical History: Bladder stimulator, infrarenal aortic aneurysm repair Past Family/Social History Family History Relations & Conditions if any BROTHER FH: coronary artery disease Relation not specified for: Parkinsonism Psychosocial History Services at Home: None ETOH Use: denies use Illicit Drug Use: denies illicit drug use Living Will? yes Functional Ability ADLs Independent: dressing, eating, toileting, bathing. Ambulation: cane Review of Systems Review of Systems Constitutional: Denies: chills, diaphoresis, fever, malaise, weakness. Cardiovascular: Denies: orthopena. GI: Denies: bloating, constipation, diarrhea, melena, nausea, vomiting. Genitourinary: Reports: see HPI, frequency, pain. Musculoskeletal: Reports: back pain. Skin: Denies: no symptoms. Neurological/Psychological: Denies: no symptoms. Exam & Diagnostic Data Last 24 Hrs of Vital Signs/I&O Vital Signs Date Time Temp Pulse Resp B/P B/P Pulse O2 O2 Flow FiO2 Mean Ox Delivery Rate 08/18 1610 98.7 78 20 131/64 94 Room Air 08/18 1234 101.0 84 18 117/68 94 Room Air Intake & Output 08/18 1600 08/18 0800 08/18 0000 Intake Total 1000 Output Total 400 Balance 600 Intake, IV 1000 Output, Urine 400 Physical Exam General Appearance Alert, Oriented X3, Cooperative, No Acute Distress Skin No Rashes, No Breakdown, No Significant Lesion HEENT Atraumatic, PERRLA, EOMI, Mucous Membr. moist/pink Neck Supple, No JVD Cardiovascular Normal S1, Normal S2, No Murmurs Lungs Clear to Auscultation Abdomen Normal Bowel Sounds, Soft, No Tenderness Neurological Normal Speech, dementia, 3/5 strenght in 4 extremitis, dysdiadokinesia Extremities No Clubbing, No Cyanosis, No Edema Vascular Normal Pulses Assessment/Plan Assessment: 87 years old male with past medical history of hypertension, diabetes, hyperlipidemia CAD, CA S/P, infrarenal aortic aneurysm S A/P repair of the aneurysm and 01/07, which as per his family was found to be leaking, for which the patient follow-up with his surgeon with ultrasound every 3 months. Was BIBA to [facility] ED with complaints of weakness which started this morning, patient was noticed to be very week. On admission the patient was febrile, leukocytosis was bandemia, which make him meet criteria for sepsis most likely his sepsis of urological origin given his history of incontinence and frequent Botox injection for incontinence. Head CT showed hypoattenuation and ischemia couldn't be ruled out. Vital signs Admission: Temperature 101, pulse 84, respiratory rate 18, blood pressure 117/68 labs on admission: wbc 18.7, hemoglobin 16, hematocrit 39.1, platelet 205, sodium 140, potassium 4.3, anion gap 17, lactic acid 3.9, glucose 244, troponin is 0.03, Urine analysis was positive for WBC 510, moderate urine bacteria, urine glucose 250 flu swab was negative Head CT: There is no evidence of acute intracranial hemorrhage or territorial infarction. No abnormal mass effect or midline shift is seen. Biggs to white matter differentiation is well preserved. No extra-axial fluid collections are identified. There is commensurate prominence of the ventricles and sulci consistent with moderate diffuse volume loss, which is age-appropriate. There is extensive low attenuation in the periventricular and subcortical white matter, consistent with severe chronic microvascular ischemic disease. There is a lacunar infarct in the left caudate head. There are atheromatous calcifications of the cavernous internal carotid arteries bilaterally. There has been bilateral lens extractions. There are no acute osseous findings. There are surgical wires at the left zygomaticofrontal suture region. The soft tissues are unremarkable. The mastoid air cells and visualized portions of the paranasal sinuses are well aerated. Chest x-ray: No evidence of pneumonia. #Sepsis of urological origin Admit to telemetry Obtain urine culture, blood culture Continue empiric coverage with ceftriaxone Trend lactic acid Echocardiography Renal ultrasound to rule out any anatomic changes or abscess Patient passed his bedside swallow eval We'll obtain formal swallow eval in the morning # ? cerebral ischemia: CT showed extensive there is extensive low attenuation in the periventricular and subcortical white matter, and a small area of more acute ischemia cannot be excluded on the basis of this study. Follow up on MRI head If acute intracranial pathology was found to have an MRI will need neuro evaluation DVT prophylaxis with Lovenox DNI consistent carbohydrate As Ranked By This Provider Problem List: 1. Sepsis 2. Weakness Core Measures/Misc (04/10) Acute Coronary Syndrome ACS Diagnosis: No Congestive Heart Failure Congestive Heart Failure Diagnosis No Cerebrovascular Accident CVA/TIA Diagnosis: No VTE (View Protocol) VTE Risk Factors Age>40 No Mechanical VTE Prophylaxis d/t N/A MechProphylax Ordered No VTE Pharm Prophylaxis d/t NA PharmProphylax ordered Sepsis (View protocol) Sepsis Present: Yes Brain Christopher 08/18/17 1823: Resident Review Statement Resident Statement: examined this patient, discussed with software development intern, agreed with software development intern, discussed with family, reviewed EMR data (avail), discussed with nursing , discussed with case mgmt, reviewed images, amended to note Other Findings: This is 87 years old male with medical history of hypertension, dementia, diabetes, hyperlipidemia CAD, CA S/P, infrarenal aortic aneurysm A/P repair of the aneurysm in 01/07, completed tests with leaking, patient follow-up with his surgeon with ultrasound every 3 months. Alvina presented to the ED with his family with a concern off generalized weakness. the family reports in the past 1-2 days his diaper become more wet than his usual. The p.t follow-up with Dr. Disla regularly to get cystoscopy and Botox injection due to his urinary incontinence, last time was on May 2017. the p.t can not provide Hx he oriented x 2, he is alert. On arrival to the ED the p.t has fever with Temp of 101.0. Also he has lactic acidosis of 3.9. Head CT scan was done in the ED that showed a concern of small area of acute ischemia. His UA showed + WBCs also his CBC reflect leukocytosis with Band. Physical examination, lab and imaging as above. Assessment: -Generalized weakness: That could be most likely due to his underlying urinary tract infection that causing for him to be dehydrated due to increased frequency and giving the leukocytosis and lactic acid elevation. But also with a concern off the CT scan of the head finding will need to rule out acute stroke with MRI imaging. Problem list: -Urinary tract infection -Leukocytosis -Lactic acidosis -Questionable stroke -Generalized weakness Plan: -Admit patient to telemetry floor -Vital every shift, NIH, fall precaution -Trend lactic acid, continue gentle IV fluid hydration given the patient underlying repaired AAA -High-dose statin, continue baby aspirin -Patient passed bedside swallow evaluation, we'll obtain formal swallow evaluation in a.m. -MRI of the head, obtain echocardiogram insidious acute stroke and obtain neurology consult -obtain urology consultation if there is Obstruction in renal US. -Physical therapy consultation -Continue IV ceftriaxone giving the patient a previous urine culture sensitivity -Carbohydrate consistent diet -Accu-Chek, insulin sliding scale -Continue home medication except antidiabetic -Check free T4, TSH -Pain pathway -DVT prophylaxis: subcutaneous Lovenox -DNI Randall BAINS,[facility] 08/18/17 1824: Attending MD Review Statement Attending Statement Attending MD Statement: examined this patient, discuss w/resident/PA/LAND USE PLANNER, agreed w/resident/PA/LAND USE PLANNER, discussed with family, reviewed EMR data (avail), discussed with nursing, discussed with case mgmt, reviewed images, amended to note Attending Assessment/Plan: 87 y/o M with PMH sig for hypertension, diabetes, hyperlipidemia CAD, CA S/P, infrarenal aortic aneurysm S A/P repair of the aneurysm and 01/07, completed tests with leaking, patient follow-up with his surgeon with ultrasound every 3 months, brought in by ambulance after his called EMS because patient was very weak this morning. He could not get up at all. had to call her granddaughter and grandson to help him get up and even when he went to the bathroom getting up from the commode was a chore. also stated that it was a very strong smell in his diaper. Patient had a recent Botox injection last month with Dr. Disla secondary to his bladder issues. Normally he does not have a strong smell to his urine but this morning it was very strong. Patient himself does not complain of any pain or any burning. He is very hard of hearing. He denies any nausea vomiting. Patient denies any rhinorrhea, body aches but he had a fever 101 in the emergency room. Vital Signs Date Time Temp Pulse Resp B/P B/P Pulse O2 O2 Flow FiO2 Mean Ox Delivery Rate 08/18 1826 97.3 86 22 163/77 97 Room Air 08/18 1610 98.7 78 20 131/64 94 Room Air 08/18 1234 101.0 84 18 117/68 94 Room Air on exam; awake, nad. cv; s1,s2, rrr resp; clear abd; soft, nt, bs+, no CVA tenderness. ext; no edema Laboratory Tests 08/18 08/18 1255 1238 Chemistry Sodium (137 - 145 mmol/L) 140 Potassium (3.5 - 5.1 mmol/L) 4.3 Chloride (98 - 107 mmol/L) 98 Carbon Dioxide (22 - 30 mmol/L) 25 Anion Gap (5 - 16) 17 H BUN (9 - 20 mg/dL) 14 Creatinine (0.7 - 1.2 mg/dL) 0.8 Estimated GFR (>60 ml/min) > 60 BUN/Creatinine Ratio (7 - 25 %) 17.5 Glucose (65 - 99 mg/dL) 244 H Lactic Acid (0.7 - 2.1 mmol/L) 3.9 H Calcium (8.4 - 10.2 mg/dL) 9.2 Total Bilirubin (0.2 - 1.3 mg/dL) 0.8 AST (17 - 59 U/L) 30 ALT (21 - 72 U/L) 31 Alkaline Phosphatase (< 127 U/L) 81 Troponin I (<0.11 ng/ml) 0.03 Total Protein (6.3 - 8.2 g/dL) 7.6 Albumin (3.5 - 5.0 g/dL) 4.4 Globulin (1.9 - 4.2 gm/dL) 3.2 Albumin/Globulin Ratio (1.1 - 2.2 %) 1.4 Hematology CBC w Diff MAN DIFF ORDERED WBC (4.8 - 10.8 /CUMM) 18.7 H RBC (4.70 - 6.10 /CUMM) 4.46 L Hgb (14.0 - 18.0 G/DL) 13.0 L Hct (42 - 52 %) 39.1 L MCV (80.0 - 94.0 FL) 87.6 MCH (27.0 - 31.0 PG) 29.2 MCHC (33.0 - 37.0 G/DL) 33.3 RDW (11.5 - 14.5 %) 14.7 H Plt Count (130 - 400 /CUMM) 205 MPV (7.4 - 10.4 FL) 7.7 Gran % (42.2 - 75.2 %) 88.2 H Lymphocytes % (20.5 - 51.1 %) 3.2 L Monocytes % (1.7 - 9.3 %) 8.3 Eosinophils % (0 - 5 %) 0.2 Basophils % (0.0 - 2.0 %) 0.1 Absolute Granulocytes (1.4 - 6.5 /CUMM) 16.5 H Segmented Neutrophils (42.2 - 75.2 %) 83 H Band Neutrophils (0.0 - 5.0 %) 8 H Absolute Lymphocytes (1.2 - 3.4 /CUMM) 0.6 L Lymphocytes (20.5 - 51.1 %) 2 L Monocytes (1.7 - 9.3 %) 7 Absolute Monocytes (0.10 - 0.60 /CUMM) 1.6 H Absolute Eosinophils (0.0 - 0.7 /CUMM) 0 Absolute Basophils (0.0 - 0.2 /CUMM) 0 Platelet Estimate (ADEQUATE) ADEQUATE Normocytic RBCs VERIFIED Normochromic RBCs VERIFIED Urines Urinalysis LIGHT H Urine Color (YEL,AMB,STR) YEL Urine Clarity (CLEAR) CLEAR Urine pH (5.0 - 8.0) 6.0 Ur Specific [place] (1.001 - 1.035) 1.025 Urine Protein (NEG,<30 MG/DL) 30 H Urine Ketones (NEG) NEG Urine Nitrite (NEG) NEG Urine Bilirubin (NEG) NEG Urine Urobilinogen (0.1 - 1.0 EU/dl) 0.2 Ur Leukocyte Esterase (NEG) NEG Ur Microscopic SEDIMENT EXAMINED Urine RBC (0 - 5 /HPF) 1-3 Urine WBC (0 - 2 /HPF) 5-10 H Urine Bacteria (NEG/NONE) MOD H Urine Mucus (FEW,NONE) FEW Urine Hemoglobin (NEG) NEG Urine Glucose (N MG/DL) [address] head: IMPRESSION: 1. There are no acute bleeds or territorial infarcts. However, there is extensive low attenuation in the periventricular and subcortical white matter, and a small area of more acute ischemia cannot be excluded on the basis of this study. 2. 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 CXR: IMPRESSION: No evidence of pneumonia. A/P; 87 y/o M with PMH sig for hypertension, diabetes, hyperlipidemia CAD, CA S/ P, infrarenal aortic aneurysm S A/P repair of the aneurysm and 01/07, completed tests with leaking, patient follow-up with his surgeon with ultrasound every 3 months, admitted with sepsis, possible UTI, High lactate level and need to r/o intracranial pathology. Patient admitted to tele. Will obtain urine cx, blood cx. Received CTX in ER, will continue for now. Will get brain MRI, tele monitor, ECHO. If any evidence of Acute intracranial path, will need Neuro eval and further stroke w/u. Please get swallow eval, give baby ASA, continue Statin. Flu swab neg and patient no resp sx. Trend lactate. Continue other home meds, SSI for diabetes. Renal US to look for any anatomical anomly. Full code. Pharmacologic DVT px.
[2017-08-18] MEDS ORDERED: VITAMIN D400 UNI2 PO (17:07)
[2017-08-18] MEDS ORDERED: OCUVITE SOFTGE1 EACH PO (17:08)
[2017-08-18 21:06] VITALS: BP 140/70
[2017-08-19 06:43] VITALS: BP 124/72
[2017-08-19 08:00] LABS: ABSOLUTE BASOPHIL COUNT 0 /CUMM (0.0-0.2); ABSOLUTE EOSINOPHIL COUNT 0.1 /CUMM (0.0-0.7); ABSOLUTE MONOCYTE COUNT 1.3 /CUMM (0.10-0.60); BASOPHIL % 0.1 % (0.0-2.0)
[2017-08-19 08:25] LABS: ABSOLUTE GRANULOCYTE CT 9.1 /CUMM (1.4-6.5); ABSOLUTE LYMPH COUNT 1.1 /CUMM (1.2-3.4); EOSINOPHIL % 0.9 % (0-5); GRANULOCYTE % 78.5 % (42.2-75.2); MEAN CORPUSCULAR HGB 29.8 PG (27.0-31.0); MEAN CORPUSCULAR HGB CONC 34.1 G/DL (33.0-37.0); MEAN CORPUSCULAR VOLUME 87.4 FL (80.0-94.0); MEAN PLATELET VOLUME 7.8 FL (7.4-10.4); PLATELET COUNT 161 /CUMM (130-400); RBC DISTRIBUTION WIDTH 14.6 % (11.5-14.5); RED BLOOD CELL CT 3.74 /CUMM (4.70-6.10); WHITE BLOOD CELL COUNT 11.6 /CUMM (4.8-10.8)
--- NOTE | 2017-08-19 08:28 | PN- Housestaff ---
Carlyn BAINS,Katherine 08/19/17 0827: Subjective Follow-up For: Stroke, sepsis of urological origin Complaints: no complaints Tele-Events Since Last Visit: Sinus rhythm heart rate 70 Subjective: Patient was seen and examined by me at bedside today. No overnight events. He is alert and oriented 2. Has baseline dementia. He denies chest pain, chest pressure, weakness, altered sensation, nausea, vomiting, abdominal pain. Review of Systems Constitutional: Reports: no symptoms. Cardiovascular: Reports: no symptoms. Respiratory: Reports: no symptoms. Gastrointestinal: Reports: no symptoms. Genitourinary: Reports: no symptoms. Musculoskeletal: Reports: no symptoms. Objective Last 24 Hrs of Vital Signs/I&O Vital Signs Date Time Temp Pulse Resp B/P B/P Pulse O2 O2 Flow FiO2 Mean Ox Delivery Rate 08/19 0920 72 122/72 08/19 0920 72 122/72 08/19 0643 98.1 74 20 124/72 96 08/18 2332 75 140/70 08/18 2332 75 140/70 08/18 2106 98.9 75 20 140/70 95 Room Air 08/18 2044 Room Air 08/18 2000 98.6 84 18 167/76 94 Room Air 08/18 1826 97.3 86 22 163/77 97 Room Air 08/18 1610 98.7 78 20 131/64 94 Room Air 08/18 1234 101.0 84 18 117/68 94 Room Air Intake & Output 08/19 1600 08/19 0800 08/19 0000 Intake Total 780 1160 Output Total 550 200 Balance 230 960 Intake, IV 600 1000 Intake, Oral 180 160 Number 1 Bowel Movements Output, Urine 550 200 Patient 167 lb Weight Weight Reported by Patient Measurement Method Physical Exam General Appearance: Alert, Cooperative, No Acute Distress HEENT: PERRLA Cardiovascular: Regular Rate, Normal S1, Normal S2, No Murmurs Lungs: Normal Air Movement Abdomen: Normal Bowel Sounds, Soft, No Tenderness, No Hepatospenomegaly Neurological: Normal Speech, Normal Tone, Sensation Intact, Cranial Nerves 3-12 NL, strength 4/4 *4 Extremities: No Edema, Normal Pulses Current Medications: Current Medications Sig/Bren Start time Last Medication Dose Route Stop Time Status Admin Acetaminophen 650 MG Q6P PRN 08/18 1700 AC PO Aspirin 0 .STK-MED ONE 08/18 1927 DC PO Aspirin 81 MG QAM 08/18 1842 AC 08/19 PO 0918 Atorvastatin Calcium 80 MG 1700 08/18 1900 AC 08/18 PO 2332 Ceftriaxone Sodium 1,000 MG DAILY 08/19 1000 AC IV Ceftriaxone Sodium 0 .STK-MED ONE 08/18 1610 DC .ROUTE Ceftriaxone Sodium 1,000 MG DAILY 08/18 1547 DC 08/18 IV 08/18 1548 1615 Enoxaparin Sodium 40 MG DAILY 08/19 1000 AC 08/19 SC 0921 Enoxaparin Sodium 40 MG DAILY 08/18 1647 DC SC Ibuprofen 400 MG Q6P PRN 08/18 1700 AC PO Insulin Aspart 0 TIDAC 08/18 1700 AC 08/19 SC 0921 Losartan Potassium 25 MG QAM 08/18 2001 AC 08/19 PO 0920 Metoprolol Tartrate 50 MG BID 08/18 2200 AC 08/19 PO 0920 Metoprolol Tartrate 0 .STK-MED ONE 08/18 1926 DC PO Omeprazole 20 MG BID 08/18 2200 AC 08/19 PO 0918 Oxycodone/ 1 TAB Q8P PRN 08/18 1700 AC Acetaminophen PO Sertraline HCl 100 MG QAM 08/19 1000 AC 08/19 PO 0918 Sodium Chloride 1,000 ML Q13H 08/18 2015 DC 08/18 IV 08/19 0914 2213 Sodium Chloride 2,190 ML ONCE ONE 08/18 1600 DC 08/18 IV 08/18 1601 1615 Sodium Chloride 1,000 ML BOLUS ONE 08/18 1315 DC 08/18 IV 08/18 1514 1348 Last 24 Hrs of Lab/Leon Results Last 24 Hrs of Labs/Mics: Laboratory Tests 08/19/17 0629: Anion Gap 13, Estimated GFR > 60, BUN/Creatinine Ratio 16.7, Triglycerides 236 H, Cholesterol 187, LDL Cholesterol, Calc 104, HDL Cholesterol 36 L, Cholesterol/HDL Ratio 5 H, CBC w Diff NO MAN DIFF REQ, RBC 3.74 L, MCV 87.4, MCH 29.8, MCHC 34.1, RDW 14.6 H, MPV 7.8, Gran % 78.5 H, Lymphocytes % 9.5 L, Monocytes % 11.0 H, Eosinophils % 0.9, Basophils % 0.1, Absolute Granulocytes 9.1 H, Absolute Lymphocytes 1.1 L, Absolute Monocytes 1.3 H, Absolute Eosinophils 0.1, Absolute Basophils 0 08/19/17 0115: Lactic Acid 1.6 08/18/17 2215: Lactic Acid 2.2 H 08/18/17 1912: Lactic Acid 2.7 H 08/18/17 1415: Virus Culture Pending 08/18/17 1255: Anion Gap 17 H, Estimated GFR > 60, BUN/Creatinine Ratio 17.5, Glucose 244 H, Lactic Acid 3.9 H, Calcium 9.2, Total Bilirubin 0.8, AST 30, ALT 31, Alkaline Phosphatase 81, Troponin I 0.03, Total Protein 7.6, Albumin 4.4, Globulin 3.2, Albumin/Globulin Ratio 1.4, TSH 0.920, Free T4 0.92, CBC w Diff MAN DIFF ORDERED , RBC 4.46 L, MCV 87.6, MCH 29.2, MCHC 33.3, RDW 14.7 H, MPV 7.7, Gran % 88.2 H, Lymphocytes % 3.2 L, Monocytes % 8.3, Eosinophils % 0.2, Basophils % 0.1, Absolute Granulocytes 16.5 H, Segmented Neutrophils 83 H, Band Neutrophils 8 H, Absolute Lymphocytes 0.6 L, Lymphocytes 2 L, Monocytes 7, Absolute Monocytes 1.6 H, Absolute Eosinophils 0, Absolute Basophils 0, Platelet Estimate ADEQUATE, Normocytic RBCs VERIFIED, Normochromic RBCs VERIFIED 08/18/17 1238: Urinalysis LIGHT H, Urine Color YEL, Urine Clarity CLEAR, Urine pH 6.0, Ur Specific [place] 1.025, Urine Protein 30 H, Urine Ketones NEG, Urine Nitrite NEG, Urine Bilirubin NEG, Urine Urobilinogen 0.2, Ur Leukocyte Esterase NEG, Ur Microscopic SEDIMENT EXAMINED, Urine RBC 1-3, Urine WBC 5-10 H, Urine Bacteria MOD H, Urine Mucus FEW, Urine Hemoglobin NEG, Urine Glucose 250 H Microbiology 08/18 1550 BLOOD: Blood Culture - [facility]KST 08/18 1522 BLOOD: Blood Culture - [facility]KST 08/18 1415 NASOPHARYN: Influenza Virus A & B Rapid Smear - COMP 08/18 1238 URINE ROUT: Urine Culture - RECD Assessment/Plan Assessment: 87 years old male with past medical history of hypertension, diabetes, hyperlipidemia CAD, [place] S/P, infrarenal aortic aneurysm S A/P repair of the aneurysm and 01/07, which as per his family was found to be leaking, for which the patient follow-up with his surgeon with ultrasound every 3 months. Was BIBA to [facility] ED with complaints of weakness/confusion for the past 1 week. Patient admitted in telemetry for further monitoring. 1. Sepsis of urological origin 2. Rule out stroke 3. Abdominal aortic aneurysm status post repair rule out leak Sepsis of urological origin Upon admission patient had fever/leukocytosis with bandemia meeting sepsis criteria possibly due to urinary tract infection. Off note patient has history of incontinence and frequent Botox injection for incontinence. Awaiting urine culture. Patient was started empirically on ceftriaxone. Patient afebrile now. Repeat labs shows a WBC of 11.6 with no bands and hemoglobin of 11.1. We will continue monitoring his vitals, complete blood count. Rule out stroke Upon admission patient had a CAT scan of the head which showed a small area of acute ischemia. Patient was planned for MRI today but in view of patient using nerve stimulator MRI was deferred. 3. Abdominal aortic aneurysm status post repair rule out leak Ultrasound of the abdomen/aorta showed no leak. Pending ultrasound of the aorta. Was done to rule out any leak. Patient was seen by physical therapy who suggested home PT. Code-DNR/DNI Diet-diabetic diet. DVT prophylaxis-Lovenox. Problem List: 1. UTI (urinary tract infection) 2. Sepsis 3. Aneurysm Pain Ratin Pain Location: none Pain Goal: Remain pain free Pain Plan: tylenol Tomorrow's Labs & Rationales: cbc,bep Brenden BAINS,Flor 08/19/17 1208: Attending MD Review Statement Attending Statement Attending MD Statement: examined this patient, discuss w/resident/PA/SENIOR ACCOUNT CLERK, agreed w/resident/PA/SENIOR ACCOUNT CLERK, reviewed EMR data (avail), discussed with nursing, discussed with case mgmt, amended to note Attending Assessment/Plan: Patient seen and examined. Resting comfortably not in any acute distress. Denies chest pain or shortness of breath. Denies palpitations. He is afebrile and hemodynamically stable. General appearance: Pleasant acute distress. Heart: S1-S2 regular Lungs: Good entry bilaterally, clear to auscultation Abdomen: Soft, nontender with normal bowel sounds Extremities: No pedal edema Skin: Intact with no rashes Neurologic: No gross focal neurologic deficits. Power is 5/5 all extremities. He has no pronator drift. Sensation is intact globally. Renal ultrasound shows relatively stable 4.9 x 5.0 infrarenal abdominal aortic aneurysm with no fluid collection adjacent to the aneurysm. Head CT shows no acute infarct or bleed. He has an extensive low attenuation in the periventricular and subcortical white matter. He has diffuse volume loss and chronic microvascular ischemic disease as well as left basal ganglia lacunar infarction. Problems: 1. Probable sepsis evidenced by elevated white count, fever, lactic acidosis and abnormal urinalysis. 2. Old stroke; noted on head CT. No acute stroke noted. 3. Deconditioning; likely secondary to underlying infection. No evidence currently of an acute stroke. 4. Infrarenal abdominal aortic aneurysm; stable. Plan: -Continue antibiotic therapy with IV ceftriaxone. Follow blood and urine cultures. -No evidence of acute stroke on CT scan. Continue antiplatelet therapy with aspirin. Continue lipid-lowering therapy with Lipitor. Ensure blood pressure is adequately controlled. -Obtain carotid Doppler. -Physical therapy follow-up. -Leukocytosis is improving. Hemoglobin level did trend downwards but likely due to hemodilution. Repeat CBC in a.m. -Anticipate discharge in next 48 hours pending results of cultures and if patient is cleared by the physical therapy service.
[2017-08-19 08:31] LABS: HEMATOCRIT 32.7 % (42-52)
--- NOTE | 2017-08-19 11:44 | ULTRASOUND REPORT ---
EXAMINATION: US RETROPERITONEAL LIMITED (AORTA) CLINICAL INFORMATION: 87-year-old male with history of abdominal aortic aneurysm, now with abdominal pain.. COMPARISON: CT abdomen pelvis 01/13/2016 TECHNIQUE: Grayscale, color Doppler and spectral Doppler evaluation of the abdominal aorta. FINDINGS: The measurements of the aorta in maximum AP and transverse dimensions respectively are as follows: Proximal: 2.7 x 2.7 cm. Mid: 2.3 x 2.7 cm. Distal: 4.9 x 5.0 cm. There is prominent thrombus within the aneurysm. This aneurysm measured 5.2 cm in maximum dimension on cross-sectional imaging of 01/13/2016. No focal fluid collection identified adjacent to the aortic aneurysm. The measurements of the common iliac arteries in maximum AP dimension are as follows: Right Common Iliac Artery: 1.2 cm. Left Common Iliac Artery: 1.4 cm. IMPRESSION: Infrarenal abdominal aortic aneurysm which is relatively stable in size measuring 4.9 x 5.0 cm. No focal fluid collection identified adjacent to the aortic aneurysm. Cross-sectional imaging with an abdominal/pelvic CT will be required for more detailed evaluation.
--- NOTE | 2017-08-19 12:07 | ULTRASOUND REPORT ---
EXAMINATION: US RETROPERITONEAL COMPLETE (RENAL) CLINICAL INFORMATION: History of infrarenal abdominal aortic aneurysm. Right-sided back pain, fever. Sepsis of urological origin. COMPARISON: None TECHNIQUE: Real-time imaging of the kidneys and bladder. FINDINGS: RIGHT KIDNEY: 11.4 x 6.0 x 5.9 cm (SAG x AP x TRV). The kidney is normal in size, contour, and echogenicity. Renal cortical thickness is normal. No calculi or focal parenchymal lesions. No hydronephrosis. LEFT KIDNEY: 11.5 x 6.4 x 5.2 cm (SAG x AP x TRV). The kidney is normal in size, contour, and echogenicity. Renal cortical thickness is normal. No focal parenchymal lesions or hydronephrosis. Trace amount of fluid is noted inferior to the left kidney. There is a 0.4 cm nonobstructing calculus present at the inferior pole. BLADDER: Well-distended and normal. Bilateral ureteral jets are not demonstrated. Prevoid bladder volume is 293 mL. Postvoid bladder volume is 156 mL. There is a small urinary bladder wall diverticulum present on the right lateral wall. IMPRESSION: 1. No evidence of any hydronephrosis on either side. 2. A 0.4 cm nonobstructing calculus at the inferior pole of the left kidney and trace amount of fluid around the inferior pole of the left kidney. 3. Small diverticulum along the right lateral wall of the urinary bladder.
[2017-08-19 14:49] VITALS: BP 120/62
--- NOTE | 2017-08-19 15:21 | Patient Discharge Instructions ---
Discharge Instructions General Discharge Information You were seen/treated for: Sepsis of urologic origin; ischemic changes in head CT could not be ruled out. Special Instructions: Follow-up with your primary care physician, urologist (Dr. Lico Disla), and neurologist, after discharge. Please return to emergency if symptoms worsen. Diet Continue normal diet: No Recommended Diet: Diabetic Activity Full Activity/No Limits: No Activity Self Limited: Yes Acute Coronary Syndrome Inclusion Criteria At DC or during hospital stay patient has or had the following: ACS DIAGNOSIS No Discharge Core Measures Meds if any: Prescribed or Continued at Discharge Meds if any: NOT Prescribed or Continued at Discharge Congestive Heart Failure Inclusion Criteria At DC or during hospital stay patient has or had the following: CHF DIAGNOSIS No Discharge Core Measures Meds if any: Prescribed or Continued at Discharge Meds if any: NOT Prescribed or Continued at Discharge Cerebrovascular accident Inclusion Criteria At DC or during hospital stay patient has or had the following: CVA/TIA Diagnosis No Discharge Core Measures Meds if any: Prescribed or Continued at Discharge Meds if any: NOT Prescribed or Continued at Discharge Venous thromboembolism Inclusion Criteria VTE Diagnosis No VTE Type NONE VTE Confirmed by (Test) NONE Discharge Core Measures - Per Current guidelines, there needs to be overlap - treatment for the first 5 days of Warfarin therapy. - If discharged on Warfarin prior to 5 days of - overlap therapy, the patient will need to be - assessed for post discharge needs including - *Post discharge parental anticoagulation - *Warfarin and/or parental anticoagulation education - *Follow up date to check INR post discharge At least 5 days overlap therapy as Inpatient No Meds if any: Prescribed or Continued at Discharge Note: Overlap Therapy is Warfarin and Anticoagulant Meds if any: NOT Prescribed or Continued at Discharge
--- NOTE | 2017-08-19 17:16 | ECHOCARDIOGRAM REPORT ---
BASILIO SHAW Age: 87 : 1930 Gender: M Exam Date: 08/19/2017 11:49 Exam Location: 1 [facility] Ht (in): 67 Wt (lb): 167 BSA: 1.91 BP: 122 / 72 Ordering Physician: Katherine Alcocer MD Referring Physician: Katherine Alcocer MD Technologist: Oleg Koenig ALFONSO Room Number: Indications: STROKE Rhythm: Technical Quality: Technically difficult study FINDINGS Left Ventricle Left ventricular cavity size normal. Left ventricular wall thickness mildly increased. No obvious regional wall motion abnormalities. Left ventricular ejection fraction is estimated at 55 %. Right Ventricle Right ventricle not well visualized, grossly normal. Right Atrium Normal right atrial size. Left Atrium Mild left atrial dilatation. Mitral Valve Mild mitral annular calcification. Mild mitral regurgitation. Aortic Valve Diffuse thickening (sclerosis) of the aortic valve cusps without reduced excursion. Mild aortic regurgitation. Tricuspid Valve Tricuspid valve not well visualized, grossly normal. Mild tricuspid regurgitation. Unable to estimate the right ventricular systolic pressure. Pulmonic Valve Pulmonic valve not well visualized. Pericardium No pericardial effusion. Great Vessels Normal size aortic root. CONCLUSIONS Technically difficult study. Left ventricular cavity size normal. Left ventricular wall thickness mildly increased. No obvious regional wall motion abnormalities. Left ventricular ejection fraction is estimated at 55 %. Right ventricle not well visualized, grossly normal. Mild left atrial dilatation. Unable to estimate the right ventricular systolic pressure. No pericardial effusion. Jose Shea M.D. (Electronically Signed) Final Date: 19 August 2017 17:15 MEASUREMENTS (Male / Female) Normal Values 2D ECHO LV Diastolic Diameter PLAX 5.3 cm 4.2 - 5.9 / 3.9 - 5.3 cm LV Systolic Diameter PLAX 3.7 cm 2.1 - 4.0 cm LV Fractional Shortening PLAX 30.2 % 25 - 46 % LV Ejection Fraction 2D Teich 57.1 % IVS Diastolic Thickness 1.1 cm LVPW Diastolic Thickness 1.1 cm LV Relative Wall Thickness 0.4 RV Internal Dim ED PLAX 3.5 cm 1.9 - 3.8 cm LVOT Diameter 2.0 cm Aortic Root Diameter 3.0 cm LA Systolic Diameter LX 4.0 cm 3.0 - 4.0 / 2.7 - 3.8 cm DOPPLER AV Peak Velocity 154.0 cm/s AV Peak Gradient 9.5 mmHg AV Mean Velocity 102.0 cm/s AV Mean Gradient 5.0 mmHg AV Velocity Time Integral 35.3 cm AI Deceleration [place] 228.0 cm/s AI Peak Velocity 389.0 cm/s AI Pressure Half Time 500.0 ms AI Peak Gradient 60.5 mmHg LVOT Peak Velocity 69.2 cm/s LVOT Peak Gradient 1.9 mmHg LVOT Mean Velocity 44.1 cm/s LVOT Mean Gradient 1.0 mmHg LVOT Velocity Time Integral 19.7 cm LVOT Stroke Volume 61.9 cm AV Area Cont Eq vti 1.8 cm AV Area Cont Eq pk 1.4 cm MV Peak Velocity 96.5 cm/s MV Peak Gradient 3.7 mmHg MV Mean Velocity 64.1 cm/s MV Mean Gradient 2.0 mmHg Mitral E Point Velocity 87.4 cm/s Mitral A Point Velocity 86.4 cm/s Mitral E to A Ratio 1.0 MV PHT Velocity 106.0 cm/s MV Deceleration [place] 381.0 cm/s MV Pressure Half Time 83.5 ms MV Area PHT 2.6 cm MV Deceleration Time 239.0 ms TR Peak Velocity 267.0 cm/s TR Peak Gradient 28.5 mmHg Right Atrial Pressure 10.0 mmHg Pulmonary Artery Systolic Pressu 38.5 mmHg Right Ventricular Systolic Press 38.5 mmHg PV Peak Velocity 120.0 cm/s PV Peak Gradient 5.8 mmHg PV Mean Velocity 72.0 cm/s PV Mean Gradient 3.0 mmHg PV Velocity Time Integral 24.3 cm LV E' Lateral Velocity 9.4 cm/s Mitral E to LV E' Lateral Ratio 9.3 LV E' Septal Velocity 5.9 cm/s Mitral E to LV E' Septal Ratio 14.7
--- NOTE | 2017-08-19 21:33 | ULTRASOUND REPORT ---
EXAMINATION: US DUPLEX CAROTID AND VERTEBRAL CLINICAL INFORMATION: Weakness. Ischemic stroke? COMPARISON: None TECHNIQUE: Real-time ultrasound and Doppler techniques (integrating B-mode 2D vascular images, Doppler spectral analysis and color flow Doppler imaging) were utilized to interrogate the extracranial carotid and vertebral arteries bilaterally. The degree of stenosis determined by criteria similar to NASCET. FINDINGS: RIGHT VESSELS - There is antegrade flow within the carotid and vertebral arteries. There is intimal thickening of the wall the common carotid artery. [id number] atherosclerotic plaque is present at the carotid bulb/bifurcation. Doppler derived peak systolic velocity measurements (cm/sec) were as follows: Distal CCA: 88 ICA: 84 (with end diastolic of 20) ECA: 190 Vertebral: 41 ICA/CCA ratio is 0.95 LEFT VESSELS - There is antegrade flow within the carotid and vertebral arteries. There is intimal thickening of the wall the common carotid artery. Mild calcified atherosclerotic plaque is seen at the along the wall of the carotid bulb. Doppler derived peak systolic velocity measurements (cm/sec) were as follows: Distal CCA: 72 ICA: 74 (with end diastolic of 14) ECA: 112 Vertebral: 28 ICA/CCA ratio is 1.02 OTHER FINDINGS- Solid, isoechoic, approximately 1.5 cm nodule within the right thyroid lobe is incidentally noted. IMPRESSION: 1. Carotid atherosclerosis without evidence of hemodynamically significant ICA stenosis. The atherosclerotic plaque produces < 50% stenosis of each proximal ICA. 2. There is antegrade flow within the carotid and vertebral arteries, bilaterally.
[2017-08-19 23:02] VITALS: BP 140/78
[2017-08-20 06:06] VITALS: BP 134/68
[2017-08-20 08:11] LABS: ABSOLUTE BASOPHIL COUNT 0 /CUMM (0.0-0.2); ABSOLUTE EOSINOPHIL COUNT 0.2 /CUMM (0.0-0.7); ABSOLUTE GRANULOCYTE CT 6.5 /CUMM (1.4-6.5); ABSOLUTE LYMPH COUNT 1.4 /CUMM (1.2-3.4); BASOPHIL % 0.4 % (0.0-2.0); EOSINOPHIL % 1.7 % (0-5); GRANULOCYTE % 71.4 % (42.2-75.2); MEAN CORPUSCULAR HGB 29.8 PG (27.0-31.0); MEAN CORPUSCULAR VOLUME 87.4 FL (80.0-94.0); MEAN PLATELET VOLUME 7.8 FL (7.4-10.4); PLATELET COUNT 180 /CUMM (130-400); RBC DISTRIBUTION WIDTH 14.8 % (11.5-14.5); RED BLOOD CELL CT 4.01 /CUMM (4.70-6.10); WHITE BLOOD CELL COUNT 9.1 /CUMM (4.8-10.8)
--- NOTE | 2017-08-20 09:41 | PN- Housestaff ---
Gunnar Hobbs MD,Ami 08/20/17 0940: Subjective Follow-up For: Stroke, sepsis of urological origin Tele-Events Since Last Visit: NSR 60-83 6 beat VT Subjective: Patient visited today, herlinda reyna, was lying in bed comfortably in no acute distress, was alert and oriented. Was complaining of mild discomfort in lower abdomen, no tenderness in exam. No fever or chills, no shortness of breathing, no chest pain, no other events. Review of Systems Constitutional: Reports: see HPI. Objective Last 24 Hrs of Vital Signs/I&O Vital Signs Date Time Temp Pulse Resp B/P B/P Pulse O2 O2 Flow FiO2 Mean Ox Delivery Rate 08/20 1422 98.3 69 18 132/62 93 Room Air 08/20 0957 61 134/68 08/20 0957 61 134/68 08/20 0606 98.2 61 16 134/68 92 Room Air 08/19 2302 98.6 75 16 140/78 93 08/19 2208 72 124/52 Intake & Output 08/20 1600 08/20 0800 08/20 0000 Intake Total 600 200 310 Output Total 200 250 Balance 600 0 60 Intake, IV 10 Intake, Oral 600 200 300 Number 1 Bowel Movements Output, Urine 200 250 Physical Exam General Appearance: Alert, Oriented X3, Cooperative, No Acute Distress Skin: No Significant Lesion Sepsis Skin Exam (color): Normal for Ethnicity HEENT: Atraumatic, EOMI, Mucous Membr. moist/pink Cardiovascular: Regular Rate, Normal S1, Normal S2 Lungs: Clear to Auscultation Abdomen: Normal Bowel Sounds, Soft, No Tenderness Neurological: Normal Speech Extremities: No Edema Current Medications: Current Medications Sig/Bren Start time Last Medication Dose Route Stop Time Status Admin Acetaminophen 650 MG Q6P PRN 08/18 1700 AC PO Aspirin 81 MG QAM 08/18 1842 AC 08/20 PO 0956 Atorvastatin Calcium 80 MG 1700 08/18 1900 AC 08/20 PO 1741 Ceftriaxone Sodium 1,000 MG DAILY 08/19 1000 AC 08/20 IV 0955 Enoxaparin Sodium 40 MG DAILY 08/19 1000 AC 08/20 SC 0957 Ibuprofen 400 MG Q6P PRN 08/18 1700 AC PO Insulin Aspart 0 TIDAC 08/18 1700 AC 08/20 SC 1740 Losartan Potassium 25 MG QAM 08/18 2000 AC 08/20 PO 0957 Metoprolol Tartrate 50 MG BID 08/180 AC 08/20 PO 0957 Omeprazole 20 MG BID 08/18 2199 AC 08/20 PO 0956 Oxycodone/ 1 TAB Q8P PRN 08/18 1700 AC Acetaminophen PO Sertraline HCl 100 MG QAM 08/19 1000 AC 08/20 PO 0956 Last 24 Hrs of Lab/Leon Results Last 24 Hrs of Labs/Mics: Laboratory Tests 08/20/17 0659: Anion Gap 16, Estimated GFR > 60, BUN/Creatinine Ratio 14.3, CBC w Diff NO MAN DIFF REQ, RBC 4.01 L, MCV 87.4, MCH 29.8, MCHC 34.0, RDW 14.8 H, MPV 7.8, Gran % 71.4, Lymphocytes % 15.9 L, Monocytes % 10.6 H, Eosinophils % 1.7, Basophils % 0.4, Absolute Granulocytes 6.5, Absolute Lymphocytes 1.4, Absolute Monocytes 1.0 H, Absolute Eosinophils 0.2, Absolute Basophils 0 Assessment/Plan Assessment: 87 years old male with past medical history of hypertension, diabetes, hyperlipidemia CAD, [place] S/P, infrarenal aortic aneurysm S A/P repair of the aneurysm and 01/07, which as per his family was found to be leaking, for which the patient follow-up with his surgeon with ultrasound every 3 months. Was BIBA to [facility] ED with complaints of weakness/confusion for the past 1 week. Patient admitted in telemetry for further monitoring. 1. Sepsis of urological origin 2. Rule out stroke 3. Abdominal aortic aneurysm status post repair rule out leak Sepsis of urological origin Upon admission patient had fever/leukocytosis with bandemia meeting sepsis criteria possibly due to urinary tract infection. Off note patient has history of incontinence and frequent Botox injection for incontinence. Awaiting urine culture. Patient was started empirically on ceftriaxone. Patient afebrile now. Repeat labs shows a WBC of 11.6 with no bands and hemoglobin of 11.1. We will continue monitoring his vitals, complete blood count. - Cotinue ceftriaxone - Uro evaluation on tuesday for neuro stimulator Rule out stroke Upon admission patient had a CAT scan of the head which showed a small area of acute ischemia. Patient was planned for MRI today but in view of patient using nerve stimulator MRI was deferred. - follow neuro note for MRI 3. Abdominal aortic aneurysm status post repair rule out leak Ultrasound of the abdomen/aorta showed no leak. Pending ultrasound of the aorta. Was done to rule out any leak. - continue to monitor Patient was seen by physical therapy who suggested home PT. Code-DNR/DNI Diet-diabetic diet. DVT prophylaxis-Lovenox. Problem List: 1. UTI (urinary tract infection) 2. Sepsis 3. Aneurysm Pain Ratin Pain Location: None Pain Goal: Pain 4 or less Pain Plan: Continue current plan Tomorrow's Labs & Rationales: CBC BEP Aaron Childs 08/20/17 1657: Attending MD Review Statement Attending Statement Attending MD Statement: examined this patient, discuss w/resident/PA/PLANT INSPECTOR, agreed w/resident/PA/PLANT INSPECTOR, discussed with family, reviewed EMR data (avail) Attending Assessment/Plan: Sepsis of urological origin. pt doing much better. reviewed renal ultrasound results with pt and his family at bedside. showed no pyelonephritis or abscess. Pt wants to d/w Dr Disal the removal of neuro stimulator that was put in for bladder issues. will d/w urology on tuesday. d/w pt and pts family the care plan.
[2017-08-20 14:22] VITALS: BP 132/62
[2017-08-20 22:16] VITALS: BP 154/60
[2017-08-21 07:54] LABS: ABSOLUTE BASOPHIL COUNT 0 /CUMM (0.0-0.2); ABSOLUTE EOSINOPHIL COUNT 0.1 /CUMM (0.0-0.7); ABSOLUTE GRANULOCYTE CT 6.4 /CUMM (1.4-6.5); ABSOLUTE LYMPH COUNT 1.1 /CUMM (1.2-3.4); ABSOLUTE MONOCYTE COUNT 1.1 /CUMM (0.10-0.60); BASOPHIL % 0.4 % (0.0-2.0); EOSINOPHIL % 1.3 % (0-5); GRANULOCYTE % 73.1 % (42.2-75.2); HEMATOCRIT 35.3 % (42-52); MEAN CORPUSCULAR HGB 29.8 PG (27.0-31.0); MEAN CORPUSCULAR VOLUME 87.6 FL (80.0-94.0); MEAN PLATELET VOLUME 7.6 FL (7.4-10.4); PLATELET COUNT 195 /CUMM (130-400); RBC DISTRIBUTION WIDTH 14.8 % (11.5-14.5); RED BLOOD CELL CT 4.03 /CUMM (4.70-6.10); WHITE BLOOD CELL COUNT 8.7 /CUMM (4.8-10.8)
--- NOTE | 2017-08-21 08:04 | PN- Housestaff ---
Carlyn BAINS,Katherine 08/21/17 0803: Subjective Follow-up For: Urinary tract infection Complaints: no complaints Tele-Events Since Last Visit: Sinus rhythm heart rate 70 Subjective: Patient was seen and examined by me at bedside today. No overnight events. No complaints. He denies chest pain, chest pressure, nausea, vomiting, chills, dysuria, shortness of breath. Review of Systems Constitutional: Reports: no symptoms. Cardiovascular: Reports: no symptoms. Respiratory: Reports: no symptoms. Gastrointestinal: Reports: no symptoms. Genitourinary: Reports: no symptoms. Objective Last 24 Hrs of Vital Signs/I&O Vital Signs Date Time Temp Pulse Resp B/P B/P Pulse O2 O2 Flow FiO2 Mean Ox Delivery Rate 08/21 1006 84 154/60 08/21 1005 84 154/60 08/20 2216 98.6 84 20 154/60 94 Room Air 08/20 2059 78 154/60 08/20 1422 98.3 69 18 132/62 93 Room Air Intake & Output 08/21 1600 08/21 0800 08/21 0000 Intake Total 500 Output Total 1000 Balance -500 Intake, IV 100 Intake, Oral 400 Output, Urine 1000 Physical Exam General Appearance: Alert, Oriented X3, Cooperative, No Acute Distress Cardiovascular: Regular Rate, Normal S1, Normal S2 Lungs: Clear to Auscultation, Normal Air Movement Abdomen: Normal Bowel Sounds, Soft, No Tenderness, No Hepatospenomegaly Neurological: Normal Speech, Strength at 5/5 X4 Ext, Normal Tone Extremities: Normal Pulses, No Tenderness/Swelling Current Medications: Current Medications Sig/Bren Start time Last Medication Dose Route Stop Time Status Admin Acetaminophen 650 MG Q6P PRN 08/18 1700 AC PO Ampicillin 1,000 MG Q6H 08/20 2000 AC 08/21 Sodium Chloride 100 ML IV 0800 Aspirin 81 MG QAM 08/18 1842 AC 08/21 PO 1006 Atorvastatin Calcium 80 MG 1700 08/18 1900 AC 08/20 PO 1741 Ceftriaxone Sodium 1,000 MG DAILY 08/19 1000 DC 08/20 IV 0955 Enoxaparin Sodium 40 MG DAILY 08/19 1000 AC 08/21 SC 1006 Ibuprofen 400 MG Q6P PRN 08/18 1700 AC PO Insulin Aspart 0 TIDAC 08/18 1700 AC 08/21 SC 1247 Losartan Potassium 25 MG QAM 08/18 2000 AC 08/21 PO 1005 Metoprolol Tartrate 50 MG BID 08/18 2199 AC 08/21 PO 1006 Omeprazole 20 MG BID 08/18 2199 AC 08/21 PO 1005 Oxycodone/ 1 TAB Q8P PRN 08/18 1700 AC Acetaminophen PO Sertraline HCl 100 MG QAM 08/19 1000 AC 08/21 PO 1005 Last 24 Hrs of Lab/Leon Results Last 24 Hrs of Labs/Mics: Laboratory Tests 08/21/17 0634: Anion Gap 16, Estimated GFR > 60, BUN/Creatinine Ratio 18.6, CBC w Diff NO MAN DIFF REQ, RBC 4.03 L, MCV 87.6, MCH 29.8, MCHC 34.0, RDW 14.8 H, MPV 7.6, Gran % 73.1, Lymphocytes % 12.1 L, Monocytes % 13.1 H, Eosinophils % 1.3, Basophils % 0.4, Absolute Granulocytes 6.4, Absolute Lymphocytes 1.1 L, Absolute Monocytes 1.1 H, Absolute Eosinophils 0.1, Absolute Basophils 0 Assessment/Plan Assessment: 87 years old male with past medical history of hypertension, diabetes, hyperlipidemia CAD, [place] S/P, infrarenal aortic aneurysm S A/P repair of the aneurysm and 01/07, which as per his family was found to be leaking, for which the patient follow-up with his surgeon with ultrasound every 3 months. Was BIBA to [facility] with complaints of weakness/confusion for the past 1 week. Patient admitted in telemetry for further monitoring. 1. Sepsis of urological origin 2. Rule out stroke 3. Abdominal aortic aneurysm status post repair rule out leak Sepsis of urological origin Upon admission patient had fever/leukocytosis with bandemia meeting sepsis criteria possibly due to urinary tract infection. Off note patient has history of incontinence and frequent Botox injection for incontinence. Urine culture growing enterococci. Patient is on ampicillin. We'll monitor his blood count. Urology consult appreciated. Rule out stroke Upon admission patient had a CAT scan of the head which showed a small area of acute ischemia. Patient was planned for MRI but in view of patient using nerve stimulator MRI was deferred. We will place a neuro consult if needed. 3. Abdominal aortic aneurysm status post repair rule out leak Ultrasound of the abdomen/aorta showed no leak. Patient was seen by physical therapy who suggested home PT. Code-DNR/DNI Diet-diabetic diet. DVT prophylaxis-Lovenox. Plan to continue antibiotics. Problem List: 1. Sepsis 2. HTN (hypertension) Pain Ratin Pain Location: NONE Pain Goal: Remain pain free Pain Plan: TYLENOL Tomorrow's Labs & Rationales: CBC,BEP AmadeoRemyloren 08/21/17 1600: Attending MD Review Statement Attending Statement Attending MD Statement: examined this patient, discuss w/resident/PA/CLUB DIRECTOR, agreed w/resident/PA/CLUB DIRECTOR, discussed with family, reviewed EMR data (avail) Attending Assessment/Plan: Sepsis of urological origin. Urine culture growing Enterococcus- on ampicillin. pt doing much better. reviewed renal ultrasound results with pt and his family at bedside. showed no pyelonephritis or abscess. Pt wants to d/w Dr iDsla the removal of neuro stimulator that was put in for bladder issues. will d/w urology on tuesday.
[2017-08-21 12:00] VITALS: BP 152/60
[2017-08-21 14:37] VITALS: BP 130/50
[2017-08-21 23:02] VITALS: BP 120/70
[2017-08-22 06:35] VITALS: BP 160/74
--- NOTE | 2017-08-22 07:07 | PN- Housestaff ---
Carlyn BAINS,Katherine 08/22/17 0707: Subjective Follow-up For: Urinary tract infection Complaints: no complaints Tele-Events Since Last Visit: Normal sinus rhythm Review of Systems Constitutional: Reports: no symptoms. Cardiovascular: Reports: no symptoms. Respiratory: Reports: no symptoms. Gastrointestinal: Reports: no symptoms. Genitourinary: Reports: no symptoms. Musculoskeletal: Reports: no symptoms. Objective Last 24 Hrs of Vital Signs/I&O Vital Signs Date Time Temp Pulse Resp B/P B/P Pulse O2 O2 Flow FiO2 Mean Ox Delivery Rate 08/22 0952 98.6 66 160/74 08/22 0952 98.6 66 160/74 08/22 0635 98.6 68 16 160/74 94 Room Air 08/21 2302 98.2 92 20 120/70 95 08/21 2229 87 180/70 08/21 1437 98.2 67 20 130/50 94 Room Air Intake & Output 08/22 1600 08/22 0800 08/22 0000 Intake Total 580 100 590 Output Total 125 Balance 580 100 465 Intake, IV 100 100 240 Intake, Oral 480 350 Number 0 Bowel Movements Output, Urine 125 Physical Exam General Appearance: Alert, Oriented X3, Cooperative, No Acute Distress Cardiovascular: Regular Rate, Normal S1, Normal S2, No Murmurs Lungs: Normal Air Movement Abdomen: Soft, No Tenderness, No Hepatospenomegaly Neurological: Strength at 5/5 X4 Ext, Normal Tone, Sensation Intact Extremities: No Edema, Normal Pulses Current Medications: Current Medications Sig/Bren Start time Last Medication Dose Route Stop Time Status Admin Acetaminophen 650 MG Q6P PRN 08/18 1700 AC PO Ampicillin 1,000 MG Q6H 08/20 1999 AC 08/22 Sodium Chloride 100 ML IV 0953 Aspirin 81 MG QAM 08/18 1842 AC 08/22 PO 0954 Atorvastatin Calcium 80 MG 1700 08/18 1900 AC 08/21 PO 1733 Enoxaparin Sodium 40 MG DAILY 08/19 1000 AC 08/22 SC 0953 Ibuprofen 400 MG Q6P PRN 08/18 1700 AC PO Insulin Aspart 0 TIDAC 08/18 1700 AC 08/22 SC 1209 Losartan Potassium 25 MG QAM 08/18 2000 AC 08/22 PO 0952 Metoprolol Tartrate 50 MG BID 08/18 2200 AC 08/22 PO 0952 Omeprazole 20 MG BID 08/18 2200 AC 08/22 PO 0952 Oxycodone/ 1 TAB Q8P PRN 08/18 1700 AC Acetaminophen PO Sertraline HCl 100 MG QAM 08/19 1000 AC 08/22 PO 0952 Last 24 Hrs of Lab/Leon Results Last 24 Hrs of Labs/Mics: Laboratory Tests 08/22/17 0653: Anion Gap 15, Estimated GFR > 60, BUN/Creatinine Ratio 18.6, CBC w Diff NO MAN DIFF REQ, RBC 3.92 L, MCV 88.3, MCH 29.9, MCHC 33.9, RDW 14.4, MPV 7.7, Gran % 71.0, Lymphocytes % 14.5 L, Monocytes % 12.1 H, Eosinophils % 2.0, Basophils % 0.4, Absolute Granulocytes 5.6, Absolute Lymphocytes 1.1 L, Absolute Monocytes 1.0 H, Absolute Eosinophils 0.2, Absolute Basophils 0 Assessment/Plan Assessment: 87 years old male with past medical history of hypertension, diabetes, hyperlipidemia CAD, [place] S/P, infrarenal aortic aneurysm S A/P repair of the aneurysm and 01/07, which as per his family was found to be leaking, for which the patient follow-up with his surgeon with ultrasound every 3 months. Was BIBA to [facility] with complaints of weakness/confusion for the past 1 week. Patient admitted in telemetry for further monitoring. Assessment and plan 1. Sepsis of urological origin 2. Rule out stroke 3. Abdominal aortic aneurysm status post repair rule out leak Sepsis of urological origin Upon admission patient had fever/leukocytosis with bandemia meeting sepsis criteria -patient is growing enterococcus in urine. Treated with IV ampicillin. He is a possible discharge home. We will convert IV antibiotics to by mouth ampicillin. 2. Abdominal aortic aneurysm status post repair rule out leak Ultrasound of the abdomen/aorta showed no leak. Patient was seen by physical therapy who suggested home PT. Code-DNR/DNI Diet-diabetic diet. DVT prophylaxis-Lovenox. Plan to continue antibiotics. Problem List: 1. UTI (urinary tract infection) Pain Ratin Pain Location: none Pain Goal: Remain pain free Pain Plan: tylenol Tomorrow's Labs & Rationales: none Brenden BAINS,Flor 08/22/17 1450: Attending MD Review Statement Attending Statement Attending MD Statement: examined this patient, discuss w/resident/PA/CLASSIFIER TENDER, agreed w/resident/PA/CLASSIFIER TENDER, discussed with family, reviewed EMR data (avail), discussed with nursing, discussed with case mgmt, amended to note Attending Assessment/Plan: Patient seen and examined. Resting comfortably and not in acute distress. Alert and oriented 3 conversant appropriately. Family present at the bedside. He is afebrile hemodynamically stable. His sepsis was brought about by urinary tract infection due to enterococcus. He is sensitive to ampicillin and will be discharged on this regimen to complete 10 days of antibiotic treatment. Family has requested about removal of the bladder stimulator as they do not feel that it is of benefit. He will be following up with the patient's urologist Dr. Disla as an outpatient. There was concern that his symptoms are brought about by a stroke however no evidence of stroke was noted on CT scan. He has no focal neurologic deficits on examination. Symptoms are likely secondary to deconditioning brought about by his UTI. He has been cleared by the physical therapy service for discharge home. he is medically stable to be discharged today.
[2017-08-22 08:33] LABS: ABSOLUTE BASOPHIL COUNT 0 /CUMM (0.0-0.2); ABSOLUTE EOSINOPHIL COUNT 0.2 /CUMM (0.0-0.7); ABSOLUTE GRANULOCYTE CT 5.6 /CUMM (1.4-6.5); ABSOLUTE LYMPH COUNT 1.1 /CUMM (1.2-3.4); BASOPHIL % 0.4 % (0.0-2.0); HEMATOCRIT 34.6 % (42-52); MEAN CORPUSCULAR HGB 29.9 PG (27.0-31.0); MEAN CORPUSCULAR HGB CONC 33.9 G/DL (33.0-37.0); MEAN CORPUSCULAR VOLUME 88.3 FL (80.0-94.0); MEAN PLATELET VOLUME 7.7 FL (7.4-10.4); PLATELET COUNT 208 /CUMM (130-400); RBC DISTRIBUTION WIDTH 14.4 % (11.5-14.5); RED BLOOD CELL CT 3.92 /CUMM (4.70-6.10); WHITE BLOOD CELL COUNT 7.9 /CUMM (4.8-10.8)
[2017-08-22] MEDS ORDERED: AMPICILLIN TRI500 MG PO ×2 (09:40→13:15)
[2017-08-22 09:52] VITALS: BP 160/74
== END 2017-08-22 13:30 | disposition home health service (06) | DRG 872 ==
LOC: ERH 12:20 → 1NO 15:50 → ERHI 15:50 → ENRESERV 16:54 → EDBEDREQ 18:48 → ENRESERV 19:18 → ENTRNSPT 20:18 → EDTRNSPTSTS 20:22 → EDTRNSPT 20:22 → 1NO 20:30 → CMPTRNSPT 20:36 → 1NO 08-19 07:44 → ENPENDDIS 08-22 10:29 → 1NO 08-22 13:30
PROVIDERS: Emergency Medicine; Internal Medicine Hematology & Oncology; Radiology Vascular & Interventional Radiology; Student in an Organized Health Care Education/Training Program
DX: A41.81 Sepsis due to Enterococcus (principal); E87.2 Acidosis; N39.0 Urinary tract infection, site not specified; E11.9 Type 2 diabetes mellitus without complications; I10 Essential (primary) hypertension; E78.5 Hyperlipidemia, unspecified; I25.10 Atherosclerotic heart disease of native coronary artery without angina pectoris; I25.2 Old myocardial infarction; Z87.891 Personal history of nicotine dependence; Z79.82 Long term (current) use of aspirin; Z82.49 Family history of ischemic heart disease and other diseases of the circulatory system; R32 Unspecified urinary incontinence; Z79.84 Long term (current) use of oral hypoglycemic drugs; I71.4 Abdominal aortic aneurysm, without rupture
CPT/HCPCS: 1NSP; 36415; 71045; 76770; 76775; 81001; 82436; 87040; 87086; 87147; 87804; 87804-59; 93005; 93010; 93306; 96360; 97110-GO; 97112-GO; 97116-GO; 97161-GP; 97530-GO; 99291; J0290; J0696; J1650; J3490

== ENCOUNTER → 2017-10-06 | Day surgery (SDC) | payer OTHER ==
[~2017-10-06] VITALS: Ht 170.2 cm; Wt 73.0 kg
[~2017-10-06] MED LIST changes: +AMPICILLIN TRI500 MG PO; +OCUVITE SOFTGE1 EACH PO; +VITAMIN D400 UNI2 PO
--- NOTE | 2017-10-06 10:13 | Operative Report ---
Operative/Inv Procedure Report Surgery Date: 10/06/17 Name of Procedure: cystoscopy: botox bladder injection 300units Pre-Operative Diagnosis: overactive bladder with incontinence Post-Operative Diagnosis: same Estimated Blood Loss: scant Surgeon/Machine Coil Assembler: Lico Disla MD Anesthesia: moderate sedation Drains: none Complications: none Operative/Procedure Note Note: The patient was taken to the operating room and placed on the OR table in supine position. Timeout was performed in order to confirm the correct patient, procedure, and other pertienent operative information. After adequate anesthesia and antibiotics, the patient was then placed lithotomy stirrups, draped and prepped in the usual surgical fashion. The 22 sinhala cystoscope with the 30 degree angle lens was inserted into the bladder without difficulty. Uretral mucosa was noted to be coapting well. The bladder appears normal without tumor/stone. Bilateral clear efflux was also noted. The cystoscope was removed after draining the bladder. Subsequently, the Botox Injection Resectoscope with 30 angle lens was inserted without difficulty. Under direct visualization, the 18-gauge cystoscopic needle was extended. Using a spiral injection pattern, avoiding the trigone, and area around the ureteral orifices. A total of 300 units of Botox, in small 10unit aliquots was injected into the bladder muscle/detrusor (including the dome, posterior, right and left prasad of the bladder) forming a submucosal blister with each injection of botox. The bladder was then drained and the Botox cystoscope was removed without difficulty. All sponge needle and instrument count were correct at the end of the case. The patient tolerated the procedure well, and was then taken to recovery room in satisfactory condition. The patient was discharged home with pain medication, and antibiotics, and to follow up in 2-4 weeks' time. Discharge Disposition: Same Day Admissions CC: Lico Disla MD
== END ==
LOC: STS 03:24
DX: N32.81 Overactive bladder (principal); N39.41 Urge incontinence; N40.1 Benign prostatic hyperplasia with lower urinary tract symptoms; E11.9 Type 2 diabetes mellitus without complications; Z79.84 Long term (current) use of oral hypoglycemic drugs; Z87.891 Personal history of nicotine dependence
CPT/HCPCS: J0585

== ENCOUNTER 2018-02-02 13:42 | Observation (INO) | payer OTHER ==
[~2018-02-02] VITALS: Ht 170.2 cm; Wt 75.8 kg
[~2018-02-02 13:42] MED LIST changes: -OMEPRAZOLE20 M2 PO; +OMEPRAZOLE40 M1 PO
--- NOTE | 2018-02-02 13:58 | ED GENERAL ADULT ---
History of Present Illness General Chief Complaint: General Adult Stated Complaint: BIBA ?UTI Source: patient, family, EMS Exam Limitations: no limitations Reconcile Medications Ascorbic Acid (Vitamin C) 500 MG TABLET 1 TAB PO QAM SUPPLEMENT (Reported) Aspirin (Children's Aspirin) 81 MG TAB.CHEW 1 TAB PO QAM HEART/BLOOD ( Reported) Cholecalciferol (Vitamin D3) (Vitamin D) 400 UNIT TABLET 1 TAB PO QAM SUPPLEMENT (Reported) NOT GIVEN IN HOSPITAL Diazepam 5 MG TABLET 1 TAB PO DAILY UNKNOWN (Reported) Glyburide 2.5 MG TABLET 1 TAB PO DAILY DIABETES (Reported) Glyburide 5 MG TABLET 1 TAB PO DAILY DIABETES (Reported) Losartan Potassium (Cozaar) 25 MG TABLET 1 TAB PO QAM HEART/BP (Reported) Memantine HCl 5 MG (28)-10 MG (21) TAB.DS.PK 1 TAB PO DAILY DEMENTIA ( Reported) Metoprolol Tartrate (Lopressor) 50 MG TABLET 1 TAB PO BID HEART/BP (Reported) Multivitamin-Min/Iron/FA/Vit K (Multi-Day Plus Minerals Tablet) 18 MG IRON-400 MCG-25 MCG TABLET 1 TAB PO QAM SUPPLEMENT (Reported) Omeprazole 40 MG CAPSULE.DR 1 CAP PO DAILY GI (Reported) Sertraline HCl 100 MG TABLET 1 TAB PO QAM MENTAL HEALTH (Reported) Simvastatin (Simvastatin*) 40 MG TABLET 1 TAB PO QPM High lipid (Reported) Sitagliptin Phosphate (Januvia) 100 MG TABLET 1 TAB PO QAM DM (Reported) Tamsulosin HCl 0.4 MG CAP.ER.24H 1 CAP PO DAILY BPH (Reported) Vit C/Vit E/Lutein/Min/[place]-3 (Ocuvite Softgel) 150 MG-30 UNIT-5 MG-150 MG CAPSULE 1 CAP PO QAM SUPPLEMENT (Reported) Vitamin E Mixed (Vitamin E) 1,000 UNIT CAPSULE 1 CAP PO QAM SUPPLEMENT ( Reported) Triage Nurses Notes Reviewed? yes Onset: Abrupt Duration: week(s): (1), changing over time, continues in ED, getting worse Timing: recent history Injury Environment: home Severity: mild, moderate No Modifying Factors: none Modifying Factors: Worsens With: movement. HPI: 87-year-old male history of Alzheimer's dementia, recurrent UTIs, hypertension, hyperlipidemia, type 2 diabetes, coronary artery disease presents for evaluation of altered mental status. According to the family the patient has gradually become lethargic and confused over the past week or so. last month he was diagnosed with Alzheimer's dementia. He has had recurrent falls over the past week or so. There is never any head strike. He has been complaining of some right-sided hip and groin pain. He has been able to walk with a walker. No fever. Patient declines any concerns or pain. No fevers. He denies chest pain or shortness of breath. He recently was started on Valium to help with bladder incontinence. Initially was started at 2.5 and is now increased to 5 mg. (Jasmeet Morfin) Vital Signs & Intake/Output Vital Signs & Intake/Output Vital Signs Date Time Temp Pulse Resp B/P B/P Pulse O2 O2 Flow FiO2 Mean Ox Delivery Rate 02/03 0859 98.1 64 18 138/70 97 Room Air 02/03 0737 97.8 63 18 143/69 95 Room Air Room Air 02/03 0248 98.7 86 16 155/78 96 Room Air 02/03 0001 77 16 145/80 97 Room Air 02/02 2154 97.6 78 16 158/76 98 Room Air 02/02 1836 69 18 143/67 95 Room Air Room Air 02/02 1659 Room Air Room Air 02/02 1540 97 Room Air Room Air 02/02 1349 98.3 67 18 151/67 93 Room Air ED Intake and Output 02/03 0000 02/02 1200 Intake Total 1000 Output Total 650 Balance 350 Intake, IV 1000 Output, Urine 650 Patient 167 lb Weight Weight Reported by Patient Measurement Method (Daniel BAINS,Clemente Esparza) Allergies Coded Allergies: NO KNOWN ALLERGIES (NONE 02/03/18) (Kathryn BAINS,Cayetano Rivera) Past History Travel History Traveled to [place] past 21 day No Medical History Any Pertinent Medical History? 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 No (Jasmeet Morfin) Review of Systems Review of Systems Constitutional: Reports: malaise, weakness. EENTM: Reports: no symptoms. Respiratory: Reports: no symptoms. Cardiovascular: Reports: no symptoms. GI: Reports: no symptoms. Genitourinary: Reports: no symptoms. Musculoskeletal: Reports: see HPI, joint pain. Skin: Reports: no symptoms. Neurological/Psychological: Reports: see HPI (FALLS), confusion, dementia. Hematologic/Endocrine: Reports: no symptoms. Immunologic/Allergic: Reports: no symptoms. All Other Systems: Reviewed and Negative (Jasmeet Morfin) Physical Exam Physical Exam General Appearance: well developed/nourished, no apparent distress, alert, awake , comfortable Head: atraumatic, normal appearance Eyes: Bilateral: normal appearance, PERRL, EOMI. Ears, Nose, Throat: normal pharynx, normal ENT inspection, hearing grossly normal, DRY MUCUS MEMBRANES Neck: normal inspection, supple, full range of motion Respiratory: chest non-tender, no respiratory distress, rhonchi (MILD BILATERAL) Cardiovascular: regular rate/rhythm, normal peripheral pulses Peripheral Pulses: 2+ radial (R), 2+ radial (L) Gastrointestinal: soft, non-tender Back: normal inspection, normal range of motion Extremities: normal inspection, normal range of motion, no edema Neurologic/Psych: no motor/sensory deficits, awake, alert, oriented x 3, normal gait Skin: intact, normal color, warm/dry Lymphatic: no anterior cervical crow Core Measures ACS in differential dx? No CVA/TIA Diagnosis: No Sepsis Present: No Sepsis Focused Exam Completed? No (Jasmeet Morfin) Progress Differential Diagnoses I considered the following diagnoses in my evaluation of the patient: [Sepsis, DEMENTIA, dehydration, electrolyte abnormality, fracture, pneumonia, CHF, medication side effect] Diagnostic Imaging: Viewed by Me: Radiology Read, CT Scan. Discussed w/RAD: Radiology Read, CT Scan. Radiology Impression: PATIENT: BASILIO SHAW SR PRESENT AGE: 87 PATIENT ACCOUNT NO: [id number] : 30 LOCATION: [facility] ORDERING PHYSICIAN: Jasmeet MEADE SERVICE DATE: 02/02/18 EXAM TYPE: RAD - XRY-PORTABLE CHEST XRAY EXAMINATION: XR PORTABLE CHEST CLINICAL INFORMATION: Pneumonia, CHF. COMPARISON: 08/18/2017 TECHNIQUE: Portable frontal view of the chest was obtained. FINDINGS: Chronic eventration of the right hemidiaphragm. Improved inflation of the lungs. Right infrahilar streaky opacities, likely subsegmental atelectasis and similar to the prior study. No focal consolidation suggestive of pneumonia. No pleural effusion or pneumothorax. Heart size is normal. Tortuosity and atherosclerosis thoracic aorta. Median sternotomy wires. No acute osseous abnormality. IMPRESSION: No acute pulmonary process. DICTATED BY: Jojo Cervantes MD DATE/TIME DICTATED:02/02/181508 NON LINEAR EDITOR:COLLETTE DATE/TIME TRANSCRIBED:02/02/181508 CONFIDENTIAL, DO NOT COPY WITHOUT APPROPRIATE AUTHORIZATION., PATIENT: BASILIO SHAW SR PRESENT AGE: 87 PATIENT ACCOUNT NO: [id number] : 30 LOCATION: [facility] ORDERING PHYSICIAN: Jasmeet MEADE SERVICE DATE: 02/02/18 EXAM TYPE: CAT - CT HEAD WO IV CONTRAST EXAMINATION: CT HEAD WITHOUT CONTRAST CLINICAL INFORMATION: Falls. Altered mental status. COMPARISON: 08/18/2017 TECHNIQUE: Contiguous axial imaging was performed from the skull base to vertex without intravenous administration of contrast. DLP: 615.8 mGy-cm FINDINGS: There is no evidence of acute intracranial hemorrhage or territorial infarction. No abnormal mass effect or midline shift is seen. Biggs to white matter differentiation is well preserved. No extra-axial fluid collections are identified. Enlargement of the ventricles, sulci, and extra-axial CSF spaces is indicative of parenchymal volume loss. Confluent areas of hypoattenuation in the subcortical and periventricular white matter are most commonly attributable to chronic microangiopathic changes. Calcific atherosclerosis is present within the cavernous and supraclinoid segments of the internal carotid arteries. Lacunar infarct is again seen in the left caudate head. Surgical fixation wires again seen in the left zygomaticofrontal suture region. The osseous structures and soft tissues are otherwise normal. The mastoid air cells and visualized portions of the paranasal sinuses are well aerated. IMPRESSION: No acute intracranial pathology. 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 DICTATED BY: Toni Do MD DATE/TIME DICTATED:02/02/181536 NON LINEAR EDITOR:COLLETTE DATE/TIME TRANSCRIBED:02/02/181536 CONFIDENTIAL, DO NOT COPY WITHOUT APPROPRIATE AUTHORIZATION. <Electronically signed in Other Vendor System> SIGNED BY: Toni Do MD 02/02/18 1545, PATIENT: BASILIO SHAW SR PRESENT AGE: 87 PATIENT ACCOUNT NO: [id number] : 30 LOCATION: [facility] ORDERING PHYSICIAN: Jasmeet MEADE SERVICE DATE: 02/02/18 EXAM TYPE: CAT - CT ABD & PELVIS W/O IV CONTRAS EXAMINATION: CT ABDOMEN AND PELVIS WITHOUT CONTRAST CLINICAL INFORMATION: Kidney stones. Hip fracture. Right groin and flank pain. History of recent falls. COMPARISON: 01/13/2016 CTA abdomen and pelvis. TECHNIQUE: Multidetector volumetric imaging was performed from the superior aspect of the liver through the pubic symphysis. Sagittal and coronal reformatted images were obtained on the technologist's workstation. DLP: 408.53 mGy-cm FINDINGS: LUNG BASES: Dependent changes at the lung bases. Median sternotomy wires. LIVER, GALLBLADDER, AND BILIARY TREE: The liver is normal in size, shape, and attenuation. No focal hepatic lesion or biliary ductal dilatation is present. The gallbladder is unremarkable with no evidence of radiopaque gallstones, gallbladder wall thickening, or obvious pericholecystic inflammatory changes. PANCREAS: Unremarkable. SPLEEN: Unremarkable. ADRENAL GLANDS: Unremarkable. KIDNEYS AND URETERS: The kidneys are normal in size, shape , and attenuation. No hydronephrosis, hydroureter, or calculi seen. Mild symmetric perinephric stranding. BLADDER: Right-sided bladder diverticulum measuring 3.2 x 1.5 cm, unchanged. GASTROINTESTINAL TRACT: Extensive diverticulosis predominately involving the sigmoid colon without CT evidence of diverticulitis. The appendix is unremarkable. There is a 3.2 cm slightly curved density within the sigmoid colon, of similar density to the regional bone. No evidence of bowel obstruction. ABDOMINAL WALL: No significant abdominal wall hernia. LYMPH NODES: No lymphadenopathy within the abdomen or pelvis. VASCULAR: The patient is now status post endovascular repair of the infrarenal abdominal aortic aneurysm with an aortobiiliac endovascular stent graft. The aneurysm sac currently measures 5.5 x 4.9 cm, previously 5.3 x 4.6 cm on the prior study from 2016. There is limited evaluation of the aneurysm and stent graft. PELVIC VISCERA: Coarse prostate calcifications, unchanged. OSSEOUS STRUCTURES: Battery pack in the right buttock with wire stimulator ending in the S3 neural foramen. Degenerative changes of the spine. No acute or suspicious osseous abnormality. IMPRESSION: 1. No evidence of acute abnormality within the abdomen or pelvis. 2. No evidence of urolithiasis. 3. Extensive diverticulosis without CT evidence of diverticulitis. 4. Newly-appearing endovascular stent graft repair of the infrarenal abdominal aortic aneurysm. Although the aneurysm sac appears to have increased in size since the prior study, the prior study was performed in 2016, prior to stent graft repair. Whether the aneurysm sac is truly growing or whether this is stable or regressing from the prior study is unknown without intervening exams from which to compare. 5. Curvilinear opacity within the sigmoid colon is of calcium density and may represent an ingested bone. Clinical correlation requested. The object appears intraluminal and does not puncture the bowel. 6. Other chronic, nonacute findings. DICTATED BY: Jojo Cervantes MD DATE/ TIME DICTATED:02/02/181534 NON LINEAR EDITOR:COLLETTE DATE/TIME TRANSCRIBED: 02/02/181534 CONFIDENTIAL, DO NOT COPY WITHOUT APPROPRIATE AUTHORIZATION. Initial ED EKG: normal sinus rhythm, nonspecific ST T wave chg Prior EKG: unchanged Hand-Off Endorsed To: Lucio Madrigal MD Endorsed Time: 2223 Pending: consult, other (re-eval) ([place] MEADE,Jasmeet) Plan of Care: Orders Procedure Date/time Status Heart Healthy Diet 02/03 B Active Discharge Patient 02/03 0948 Active PT Evaluate & Treat 02/03 0900 Active CASE MANAGEMENT CONSULT 02/03 0900 Active FingerStick- Glucose 02/03 0808 Active Theraputic Activities 15 Min 02/03 UNK Complete MOBILITY GOAL STATUS 02/03 UNK Complete MOBILITY CURRENT STATUS 02/03 UNK Complete Gait Training, 15 Min 02/03 UNK Complete PT EVAL LOW COMPLEX 20 MIN 02/03 UNK Complete Patient Safety Monitor 02/02 2114 Active LACTIC ACID 02/[address] in observation 02/02 1631 Active ED Holding Orders 02/02 1631 Active Patient Data 02/02 1631 Active Vital Signs 02/02 1631 Active Code Status 02/02 1631 Active Add-on Test (ER Only) 02/02 1557 Active Intake & Output 02/02 1526 Active CULTURE,URINE 02/02 1520 Active URINE DRUG SCREEN FOR ER ONLY 02/02 1353 Complete URINALYSIS 02/02 1352 Complete TROPONIN LEVEL 02/02 1352 Complete LACTIC ACID 02/02 1352 Complete ETHANOL 02/02 1352 Complete COMPREHENSIVE METABOLIC PANEL 02/02 1352 Complete CBC WITHOUT DIFFERENTIAL 02/02 1352 Complete EKG 02/02 1352 Active Current Medications Sig/Bren Start time Last Medication Dose Stop Time Status Admin Atorvastatin Calcium 40 MG 1700 02/03 1700 AC (Lipitor) Aspirin 81 MG QAM 02/03 0900 AC 02/03 (Aspirin) 0935 Diazepam 2 MG DAILY 02/03 0900 AC 02/03 (Valium) 0937 Glyburide 5 MG DAILY 02/03 0900 AC 02/03 (Diabeta) 0935 Losartan Potassium 25 MG QAM 02/03 0900 AC 02/03 (Cozaar) 0935 Memantine 10 MG DAILY 02/03 0900 AC 02/03 (Namenda) 0935 Metoprolol Tartrate 50 MG BID 02/03 0900 AC 02/03 (Lopressor) 0935 Sertraline HCl 100 MG QAM 02/03 0900 AC 02/03 (Zoloft) 0935 Sitagliptin Phosphate 100 MG QAM 02/03 0900 AC 02/03 (JANUVIA) 0935 Laboratory Tests 02/02/18 1520: Lactic Acid 1.0, Urine Opiates Screen < 100, Methadone Screen < 40, Barbiturate Screen < 60, Ur Phencyclidine Scrn < 6.00, Amphetamines Screen < 100, U Benzodiazepines Scrn > 800 H, Urine Cocaine Screen < 50, Urine Cannabis Screen < 5.00, Urine Color YEL, Urine Clarity CLEAR, Urine pH 6.0, Ur Specific [place] 1.020, Urine Protein NEG, Urine Ketones NEG, Urine Nitrite NEG, Urine Bilirubin NEG, Urine Urobilinogen 0.2, Ur Leukocyte Esterase SMALL H, Ur Microscopic SEDIMENT EXAMINED, Urine RBC RARE, Urine WBC 3-5 H, Ur Epithelial Cells RARE, Urine Bacteria RARE H, Urine Hemoglobin NEG, Urine Glucose NEG 02/02/18 1405: Anion Gap 15, Estimated GFR > 60, BUN/Creatinine Ratio 12.9, Glucose 152 H, Lactic Acid 2.0, Calcium 8.9, Total Bilirubin 0.4, AST 24, ALT 27, Alkaline Phosphatase 67, Troponin I < 0.01, Total Protein 6.8, Albumin 3.9, Globulin 2.9, Albumin/Globulin Ratio 1.3, CBC w Diff NO MAN DIFF REQ, RBC 3.79 L, MCV 88.9, MCH 31.0, MCHC 34.8, RDW 14.2, MPV 7.3 L, Gran % 68.4, Lymphocytes % 17.4 L, Monocytes % 12.4 H, Eosinophils % 1.7, Basophils % 0.1, Absolute Granulocytes 5.5, Absolute Lymphocytes 1.4, Absolute Monocytes 1.0 H, Absolute Eosinophils 0.1, Absolute Basophils 0, Serum Alcohol < 10.0 02/02/18 1353: Serum Alcohol Cancelled Microbiology 02/02 1520 URINE ROUT: Urine Culture - RES ENTEROCOCCUS Patient is here for evaluation of confusion unsteady gait. He is diagnosed with dementia one month ago. Additionally patient is being treated with Valium for overactive bladder. He had been taking 2 mg for about 2 months and then one month ago was increased to 5. Patient is also resistant dementia medication. Labs CT head CT evidence pelvis ordered. Blood work is not showing any significant acute findings. Urinalysis does show some white blood cells and small leukocyte esterase. A urine culture was ordered. Urine drug screen reveals very high levels of benzodiazepines. The patient's story seems to at up to benzodiazepine intoxication/dependence. Patient's gait and confusion levels both became infected around the time when the dose of benzo one from 2-5. Patient has an unsteady gait in the emergency department and is a fall risk. He will be In the emergency department overnight for physical therapy and case management eval in the morning. Patient will likely need short-term rehabilitation in order to detox from the benzos. Patient will require physical therapy case management medication adjustment monitoring of vital signs monitoring her mental status case discussed with Dr. Sanchez he agrees. Patient has been resting comfortably throughout the day. Patient started becoming more awake and alert. He was able to get out of bed and has been standing in the room. A sitter was ordered due to patient's high fall risk. pt signed out to dr madrigal pending pt/casemanagement/re-eval. (Jasmeet Morfin) (Clemente Sanchez MD) Differential Diagnoses I considered the following diagnoses in my evaluation of the patient: Hand-Off Endorsed To: Cayetano Peralta MD Endorsed Time: 0700 Pending: consult, other (PT consult, case mgmt) (Lucio Madrigal MD) Comments: 02/03/2018 7:54:26 AM patient signed out to me by Dr. 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 02/03/2018 9:44:10 AM patient has been evaluated by physical therapy and cleared for outpatient management. Patient has been evaluated by case management and his home care will be enhanced. I have reviewed patient's evaluation here in the emergency department including the abdominal CAT scan findings of a calcification intraluminally within the bowel. The patient seems to have no gastrointestinal complaint so this is likely an incidental finding. (Cayetano Peralta MD) Departure Departure Condition: Stable Clinical Impression Primary Impression: Gait instability Secondary Impressions: Benzodiazepine dependence Departure Forms: Customer Survey General Discharge Information (Jasmeet Morfin) PA/RATE EXAMINER Co-Sign Statement Statement: ED Attending supervision documentation- [X] I saw and evaluated the patient. I have also reviewed all the pertinent lab results and diagnostic results. I agree with the findings and the plan of care as documented in the PA's/RATE EXAMINER's documentation. [X] I have reviewed the ED Record and agree with the PA's/RATE EXAMINER's documentation. [] Additions or exceptions (if any) to the PAs/RATE EXAMINER's note and plan are summarized below: [] (Daniel BAINS,Clemente Esparza) Departure Disposition: HOME OR SELF CARE Referrals: Taurus Barraza MD (PCP/Family) Additional Instructions: Follow-up with your primary care physician as soon as possible for reevaluation. Return if any concerns or sudden worsening. Please note that there might be incidental findings in your evaluation that are unrelated to the current emergency department visit. Please notify your primary care doctor about this emergency department visit in order to obtain and review all of the testing performed so that these incidental findings can be monitored as needed. If you had an x-ray performed, please understand that some fractures or other findings may not be seen on the initial set of x-rays. If your symptoms persist you might need a repeat set of x-rays to check for such a fracture. If you had a laceration evaluated, please understand that foreign bodies such as glass or wood may not be visible to the naked eye or on plain x-rays. If the wound becomes red, swollen, increasingly more painful or if there is any drainage from the wound, please have it reevaluated by a physician for the possibility of a retained foreign body. If you're unable to follow up as outlined in the discharge instructions please return to the emergency department. Thank you for choosing the [facility] Emergency Department for your care. It was a pleasure to serve you today. Cayetano Peralta M.D. [facility] (Kathryn BAINS,Cayetano Rivera) Critical Care Note Critical Care Note Critical Care Time: non-applicable ([place] MEADE,Jasmeet) ED Attending Observation Initial Observation Note: I have seen and personally examined BASILIO SHAW SR on 02/02/18 at 1631. I agree with the current emergency department documentation. The disposition (admission or discharge) is uncertain at this time, he needs a period of observation for the following reason(s): [Patient is having frequent falls and weakness. His benzo level is elevated and he was recently diagnosed with dementia. Will hold the patient in the emergency department for frequent neuro checks and follow-up the urine culture. Will need a benzo taper as well as a physical therapy consultation for home safety eval. Gentle hydration] The ED Nurse caring for this patient has been personally informed as to what the patient is being observed for. (Daniel BAINS,Clemente Esparza) Observation Re-Evaluation: I have reevaluated BASILIO SHAW SR on 02/03/18 at 0031. The physical findings that support the continued need to observe this patient include gait instability. (Lucio Madrigal MD) Initial Observation Note: I have seen and personally examined BASILIO SHAW SR on 02/03/18 at 0949. I agree with the current emergency department documentation. The disposition (admission or discharge) is uncertain at this time, he needs a period of observation for the following reason(s): The ED Nurse caring for this patient has been personally informed as to what the patient is being observed for. Observation Discharge: I have reevaluated BASILIO SHAW SR on 02/03/18 at 0949. The patient is: ([X]): Stable for discharge (): To be admitted to Nursing Floor (): To be placed in Observation on Nursing Floor (): For transfer to other facility The patient was being observed for gait instability and inability to perform ADLs and return home As a result of that observation, I have determined patient is stable for discharge. (Kathryn BAINS,Cayetano Rivera)
[2018-02-02 14:21] LABS: ABSOLUTE BASOPHIL COUNT 0 /CUMM (0.0-0.2); ABSOLUTE EOSINOPHIL COUNT 0.1 /CUMM (0.0-0.7); ABSOLUTE GRANULOCYTE CT 5.5 /CUMM (1.4-6.5); ABSOLUTE LYMPH COUNT 1.4 /CUMM (1.2-3.4); BASOPHIL % 0.1 % (0.0-2.0); EOSINOPHIL % 1.7 % (0-5); GRANULOCYTE % 68.4 % (42.2-75.2); HEMATOCRIT 33.7 % (42-52); MEAN CORPUSCULAR HGB CONC 34.8 G/DL (33.0-37.0); MEAN CORPUSCULAR VOLUME 88.9 FL (80.0-94.0); MEAN PLATELET VOLUME 7.3 FL (7.4-10.4); PLATELET COUNT 176 /CUMM (130-400); RBC DISTRIBUTION WIDTH 14.2 % (11.5-14.5); RED BLOOD CELL CT 3.79 /CUMM (4.70-6.10)
[2018-02-02] MEDS ORDERED: DIAZEPAM5 M1 PO (14:32)
[2018-02-02] MEDS ORDERED: TAMSULOSIN HCL0.4 M1 PO (14:32)
[2018-02-02] MEDS ORDERED: GLYBURIDE5 M1 PO (14:33)
[2018-02-02] MEDS ORDERED: MEMANTINE HCL1 EACH PO (14:35)
--- NOTE | 2018-02-02 15:45 | CT SCAN REPORT ---
EXAMINATION: CT HEAD WITHOUT CONTRAST CLINICAL INFORMATION: Falls. Altered mental status. COMPARISON: 08/18/2017 TECHNIQUE: Contiguous axial imaging was performed from the skull base to vertex without intravenous administration of contrast. DLP: 615.8 mGy-cm FINDINGS: There is no evidence of acute intracranial hemorrhage or territorial infarction. No abnormal mass effect or midline shift is seen. Biggs to white matter differentiation is well preserved. No extra-axial fluid collections are identified. Enlargement of the ventricles, sulci, and extra-axial CSF spaces is indicative of parenchymal volume loss. Confluent areas of hypoattenuation in the subcortical and periventricular white matter are most commonly attributable to chronic microangiopathic changes. Calcific atherosclerosis is present within the cavernous and supraclinoid segments of the internal carotid arteries. Lacunar infarct is again seen in the left caudate head. Surgical fixation wires again seen in the left zygomaticofrontal suture region. The osseous structures and soft tissues are otherwise normal. The mastoid air cells and visualized portions of the paranasal sinuses are well aerated. IMPRESSION: No acute intracranial pathology. 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
--- NOTE | 2018-02-02 15:53 | RADIOLOGY REPORT ---
EXAMINATION: XR PORTABLE CHEST CLINICAL INFORMATION: Pneumonia, CHF. COMPARISON: 08/18/2017 TECHNIQUE: Portable frontal view of the chest was obtained. FINDINGS: Chronic eventration of the right hemidiaphragm. Improved inflation of the lungs. Right infrahilar streaky opacities, likely subsegmental atelectasis and similar to the prior study. No focal consolidation suggestive of pneumonia. No pleural effusion or pneumothorax. Heart size is normal. Tortuosity and atherosclerosis thoracic aorta. Median sternotomy wires. No acute osseous abnormality. IMPRESSION: No acute pulmonary process.
--- NOTE | 2018-02-02 16:03 | CT SCAN REPORT ---
EXAMINATION: CT ABDOMEN AND PELVIS WITHOUT CONTRAST CLINICAL INFORMATION: Kidney stones. Hip fracture. Right groin and flank pain. History of recent falls. COMPARISON: 01/13/2016 CTA abdomen and pelvis. TECHNIQUE: Multidetector volumetric imaging was performed from the superior aspect of the liver through the pubic symphysis. Sagittal and coronal reformatted images were obtained on the technologist's workstation. DLP: 408.53 mGy-cm FINDINGS: LUNG BASES: Dependent changes at the lung bases. Median sternotomy wires. LIVER, GALLBLADDER, AND BILIARY TREE: The liver is normal in size, shape, and attenuation. No focal hepatic lesion or biliary ductal dilatation is present. The gallbladder is unremarkable with no evidence of radiopaque gallstones, gallbladder wall thickening, or obvious pericholecystic inflammatory changes. PANCREAS: Unremarkable. SPLEEN: Unremarkable. ADRENAL GLANDS: Unremarkable. KIDNEYS AND URETERS: The kidneys are normal in size, shape, and attenuation. No hydronephrosis, hydroureter, or calculi seen. Mild symmetric perinephric stranding. BLADDER: Right-sided bladder diverticulum measuring 3.2 x 1.5 cm, unchanged. GASTROINTESTINAL TRACT: Extensive diverticulosis predominately involving the sigmoid colon without CT evidence of diverticulitis. The appendix is unremarkable. There is a 3.2 cm slightly curved density within the sigmoid colon, of similar density to the regional bone. No evidence of bowel obstruction. ABDOMINAL WALL: No significant abdominal wall hernia. LYMPH NODES: No lymphadenopathy within the abdomen or pelvis. VASCULAR: The patient is now status post endovascular repair of the infrarenal abdominal aortic aneurysm with an aortobiiliac endovascular stent graft. The aneurysm sac currently measures 5.5 x 4.9 cm, previously 5.3 x 4.6 cm on the prior study from 2016. There is limited evaluation of the aneurysm and stent graft. PELVIC VISCERA: Coarse prostate calcifications, unchanged. OSSEOUS STRUCTURES: Battery pack in the right buttock with wire stimulator ending in the S3 neural foramen. Degenerative changes of the spine. No acute or suspicious osseous abnormality. IMPRESSION: 1. No evidence of acute abnormality within the abdomen or pelvis. 2. No evidence of urolithiasis. 3. Extensive diverticulosis without CT evidence of diverticulitis. 4. Newly-appearing endovascular stent graft repair of the infrarenal abdominal aortic aneurysm. Although the aneurysm sac appears to have increased in size since the prior study, the prior study was performed in 2016, prior to stent graft repair. Whether the aneurysm sac is truly growing or whether this is stable or regressing from the prior study is unknown without intervening exams from which to compare. 5. Curvilinear opacity within the sigmoid colon is of calcium density and may represent an ingested bone. Clinical correlation requested. The object appears intraluminal and does not puncture the bowel. 6. Other chronic, nonacute findings.
[2018-02-03 10:45] VITALS: BP 138/74
== END 2018-02-03 10:56 ==
LOC: ERH 13:42 → ERHI 16:31
PROVIDERS: Physician Assistant Medical
DX: R26.9 Unspecified abnormalities of gait and mobility (principal); Z79.82 Long term (current) use of aspirin; E11.9 Type 2 diabetes mellitus without complications; Z79.84 Long term (current) use of oral hypoglycemic drugs; G30.9 Alzheimer's disease, unspecified; F02.80 Dementia in other diseases classified elsewhere, unspecified severity, without behavioral disturbance, psychotic disturbance, mood disturbance, and anxiety; I10 Essential (primary) hypertension; E78.5 Hyperlipidemia, unspecified; I25.10 Atherosclerotic heart disease of native coronary artery without angina pectoris; I25.2 Old myocardial infarction; K21.9 Gastro-esophageal reflux disease without esophagitis; F13.20 Sedative, hypnotic or anxiolytic dependence, uncomplicated
CPT/HCPCS: 6090; 71045; 74176; 80307; 81001; 87086; 87147; 93005; 93010; 96360; 97116-GP; 97161-GP; 97530-GP; G0378; G0480; G8978-GP; G8979-GP; J3490